=== PATIENT | male | born 1960 | race Caucasian/White ===

== ENCOUNTER 2022-02-25 07:45 | Outpatient (REF) | payer OTHER, SELFPAY | END 2022-02-25 07:46 | disposition home or self-care (01) | LOC: HO.US 07:45 | PROVIDERS: Visit Provider Internal Medicine | DX: Z13.89 Encounter for screening for other disorder (principal) ==

== ENCOUNTER 2022-03-31 08:07 | Outpatient (REF) | payer OTHER, SELFPAY ==
--- NOTE | ~2022-03-31 | US_ITS ---
EXAMINATION: US COMPLETE ABDOMEN WITH LIVER ELASTOGRAPHY CLINICAL INFORMATION: Liver fibrosis. History of hepatitis C. COMPARISON: Previous abdominal ultrasound December 2019 TECHNIQUE: Real-time imaging of the abdominal viscera. Noninvasive ultrasound liver fibrosis assessment is performed using Pranay ElastPQ point quantification shear wave elastography (2D-SWE) with a C5-2 MHz transducer. Multiple elastography samples are obtained. FINDINGS: PANCREAS: Normal. ABDOMINAL AORTA: The proximal, middle, and distal aortic segments are normal in caliber. INFERIOR VENA CAVA: Visualized portions are normal. LIVER: Liver echotexture is slightly increased. The liver demonstrates normal size and contour. No focal lesion or intrahepatic biliary duct dilatation. The right lobe measures 14.5 cm in length. The left lobe measures 7.1 cm in length. Portal flow is normal/hepatopedal Shear wave liver elastography median stiffness is 1.4 m/s (reference: normal median stiffness is 1.3 m/s or less). IQR/median stiffness to assess sampling precision is 0.07 (reference: good quality data set is IQR/median stiffness of 0.15 or less). GALLBLADDER: Normal. The gallbladder is physiologically distended without evidence of stones, sludge, polyps, wall thickening or pericholecystic fluid. COMMON BILE DUCT: Normal in caliber measuring 0.3 cm in diameter. RIGHT KIDNEY: There is a 1.2 x 0.8 x 0.7 cm cyst. No hydronephrosis. No renal calculi or focal parenchymal lesions. The kidney measures 10.7 cm in maximum dimension. LEFT KIDNEY: Normal. No hydronephrosis. No renal calculi or focal parenchymal lesions. The kidney measures 10.2 cm in maximum dimension. SPLEEN: Normal. The spleen measures 9.6 cm in maximum dimension. FREE FLUID: None. US/US abdomen comp w elastography IMPRESSION: 1. Impression: Slightly echogenic liver. No focal liver lesion or evidence of cirrhosis. Small right renal cyst. 2. Liver elastography: Adequate liver sampling. In the absence of other known clinical signs, rules out compensated advanced chronic liver disease. REFERENCE: Society of Radiologists in Ultrasound Liver Stiffness Thresholds (2020): LIVER STIFFNESS THRESHOLDS: *Liver Stiffness equal or less than 1.3 m/s: High probability of being normal. *Liver Stiffness less than 1.7 m/s: In the absence of other known clinical signs, rules out compensated advanced chronic liver disease. *Liver Stiffness 1.7-2.1 m/s: Suggestive of compensated advanced chronic liver disease but need further test for confirmation. *Liver Stiffness over 2.1 m/s: Rules in compensated advanced chronic liver disease. *Liver Stiffness over 2.4 m/s: Suggestive of clinically significant portal hypertension. QUALITY OF DATA SET: *IQR/Median value equal or less than 0.15 implies a quality data set. *IQR/Median value over 0.15 implies a poor quality data set. SIGNIFICANT CHANGE FROM PRIOR EXAM: Significant change if liver stiffness measurement is 10% or greater from prior exam. OTHER CONSIDERATIONS: The stage of liver fibrosis may be overestimated in the setting of acute hepatitis, liver inflammation, elevated liver function tests, hepatic vascular congestion, obstructive cholestasis, non-fasting state, and infiltrative diseases such as amyloidosis and lymphoma. In some patients with NAFLD, the liver stiffness thresholds for compensated advanced chronic liver disease may be lower. In causes other than viral hepatitis and NAFLD, liver stiffness thresholds are not well established.
== END 2022-03-31 08:08 | disposition home or self-care (01) ==
LOC: HO.US 08:07
PROVIDERS: Visit Provider Internal Medicine
DX: K74.00 Hepatic fibrosis, unspecified (principal); Z86.19 Personal history of other infectious and parasitic diseases
CPT/HCPCS: 76705; 76981

== ENCOUNTER 2022-04-07 16:30 | Outpatient (REF) | payer OTHER, SELFPAY ==
[2022-04-07 16:52] LABS: MANUAL DIFF FLAG NO
[2022-04-07 17:04] LABS: Basophils Absolute Auto 0.1 X10*3/uL (0.0-0.2); Basophils Percent Auto 0.8 % (0-2); Eosinophils Absolute Auto 0.3 X10*3/uL (0.0-0.4); Eosinophils Percent Auto 3.8 % (0-4); Hematocrit 37.1 % (42.0-52.0); Hemoglobin 12.6 g/dl (14.0-18.0); INTERNATIONAL NORM RATIO 0.9 (0.9-1.1); Imm Gran Abs Auto 0.02 X10*3/uL (0.00-0.03); Imm Gran Pct Auto 0.3 % (0.0-0.4); Lymphocytes Absolute Auto 2.6 X10*3/uL (1.2-4.9); Lymphocytes Percent Auto 37.3 % (20-40); Mean Corpuscular Hemoglobin 33.2 pg (27.0-33.0); Mean Corpuscular Volume 97.6 fL (80.0-98.0); Mean Platelet Volume 9.3 fL (9.4-12.4); Monocytes Absolute Auto 0.6 X10*3/uL (0.1-1.2); Monocytes Percent Auto 8.8 % (2-11); Neutrophils Absolute Auto 3.5 x10*3/uL (2.0-8.3); Platelet Count 290 X10*3/uL (160-400); Prothrombin Time 10.6 SEC (9.9-13.0); Red Cell Distribution Width 12.8 % (11.0-16.0); White Blood Count 7.1 X10*3/uL (4.8-10.8)
[2022-04-07 17:30] LABS: Alanine Aminotransferase 15 U/L (0-40); Albumin Level 4.2 g/dL (3.5-5.0); Alkaline Phosphatase 81 U/L (39-117); Aspartate Amino Transferase 28 U/L (5-37); Bilirubin Direct < 0.2 mg/dL (0.0-0.5); Bilirubin Total 0.2 mg/dL (0.0-1.0); Total Protein 6.5 g/dL (6.5-8.0)
[2022-04-09 12:26] LABS: Alpha Fetoprotein 1.6 ng/mL (<6.1)
[2022-04-12 06:11] LABS: FIB-ALT 16 U/L (9-46); FIB-Alpha-2-Macroglobulin 210 mg/dL (106-279); FIB-Apolipoprotein A1 125 mg/dL (94-176); FIB-GGT 14 U/L (3-70); FIB-Haptoglobin 128 mg/dL (43-212); FIB-Total Bilirubin 0.3 mg/dL (0.2-1.2); Liver Fibrosis Score 0.23; Liver Fibrosis Stage F0-F1; Nec Inflam Act Grade A0; Nec Inflam Act Score 0.05
== END 2022-04-07 16:31 | disposition home or self-care (01) ==
LOC: HO.LAB 16:30
PROVIDERS: Visit Provider Internal Medicine
DX: K74.00 Hepatic fibrosis, unspecified (principal); Z86.19 Personal history of other infectious and parasitic diseases
CPT/HCPCS: 36415; 80076; 81596; 82105; 85025; 85610; 87522

== ENCOUNTER 2022-04-09 16:17 | Outpatient (REF) | payer OTHER, SELFPAY ==
[2022-04-13 13:36] LABS: HCV Log PCR <1.18 NOT DETECTED Log IU/mL (NOT DETECTED); HepC Viral Load <15 NOT DETECTED IU/mL (NOT DETECTED)
== END 2022-04-09 16:18 | disposition home or self-care (01) ==
LOC: HO.LAB 16:17
PROVIDERS: PCP Internal Medicine; Visit Provider Internal Medicine
DX: K74.00 Hepatic fibrosis, unspecified (principal); Z86.19 Personal history of other infectious and parasitic diseases
CPT/HCPCS: 36415; 87522

== ENCOUNTER 2024-01-10 08:23 | Outpatient (REF) | payer MEDICARE, OTHER, SELFPAY ==
--- NOTE | ~2024-01-10 | US_ITS ---
EXAMINATION: US COMPLETE ABDOMEN WITH LIVER ELASTOGRAPHY CLINICAL INFORMATION: Hepatic fibrosis; history of hepatitis C. COMPARISON: None available. TECHNIQUE: Real-time imaging of the abdominal viscera. Noninvasive ultrasound liver fibrosis assessment is performed using Pranay ElastPQ point quantification shear wave elastography (2D-SWE) with a C5-2 MHz transducer. Multiple elastography samples are obtained. FINDINGS: PANCREAS: Limited. The visualized pancreatic head and proximal body are normal in appearance. The remainder of the pancreas is obscured from visualization by the overlying bowel gas. ABDOMINAL AORTA: The proximal, middle, and distal aortic segments are normal in caliber. There are atherosclerotic calcifications of the mid and distal segments. INFERIOR VENA CAVA: Visualized portions are normal. LIVER: Normal. The liver demonstrates normal size, contour and echogenicity. No focal lesion or intrahepatic biliary duct dilatation. The right lobe measures 14.2 cm in length. The left lobe measures 7.0 cm in length. Portal flow is towards the liver (hepatopetal). Shear wave liver elastography median stiffness is 1.69 m/s (reference: normal median stiffness is 1.3 m/s or less). IQR/median stiffness to assess sampling precision is 0.16 (reference: good quality data set is IQR/median stiffness of 0.15 or less). GALLBLADDER: Normal. The gallbladder is physiologically distended without evidence of stones, sludge, polyps, wall thickening or pericholecystic fluid. COMMON BILE DUCT: Normal in caliber measuring 0.4 cm in diameter. RIGHT KIDNEY: Normal. No hydronephrosis. No renal calculi or focal parenchymal lesions. The kidney measures 10.1 cm in maximum dimension. LEFT KIDNEY: Normal. No hydronephrosis. No renal calculi or focal parenchymal lesions. The kidney measures 9.9 cm in maximum dimension. SPLEEN: Normal. The spleen measures 6.9 cm in maximum dimension. FREE FLUID: None. US/US abdomen comp w elastography IMPRESSION: 1. Liver elastography: Although measurements appear to rule out compensated advanced chronic liver disease, there is statistical variability of the sampling which decreases accuracy. 2. Technically limited ultrasound examination, in particular of the pancreas. REFERENCE: Society of Radiologists in Ultrasound Liver Stiffness Thresholds (2019): LIVER STIFFNESS THRESHOLDS: *Liver Stiffness equal or less than 1.3 m/s: High probability of being normal. *Liver Stiffness less than 1.7 m/s: In the absence of other known clinical signs, rules out compensated advanced chronic liver disease. *Liver Stiffness 1.7-2.1 m/s: Suggestive of compensated advanced chronic liver disease but need further test for confirmation. *Liver Stiffness over 2.1 m/s: Rules in compensated advanced chronic liver disease. *Liver Stiffness over 2.4 m/s: Suggestive of clinically significant portal hypertension. QUALITY OF DATA SET: *IQR/Median value equal or less than 0.15 implies a quality data set. *IQR/Median value over 0.15 implies a poor quality data set. SIGNIFICANT CHANGE FROM PRIOR EXAM: Significant change if liver stiffness measurement is 10% or greater from prior exam. OTHER CONSIDERATIONS: The stage of liver fibrosis may be overestimated in the setting of acute hepatitis, liver inflammation, elevated liver function tests, hepatic vascular congestion, obstructive cholestasis, non-fasting state, and infiltrative diseases such as amyloidosis and lymphoma. In some patients with NAFLD, the liver stiffness thresholds for compensated advanced chronic liver disease may be lower. In causes other than viral hepatitis and NAFLD, liver stiffness thresholds are not well established.
[2024-01-10 08:19] LABS: MANUAL DIFF FLAG NO
[2024-01-10 09:02] LABS: INTERNATIONAL NORM RATIO 0.9 (0.9-1.1); Prothrombin Time 10.9 SEC (11.1-13.3)
[2024-01-10 09:32] LABS: Alanine Aminotransferase 16 U/L (0-40); Albumin Level 4.2 g/dL (3.5-5.0); Alkaline Phosphatase 58 U/L (39-117); Aspartate Amino Transferase 24 U/L (5-37); Bilirubin Direct 0.2 mg/dL (0.0-0.5); Bilirubin Total 0.5 mg/dL (0.0-1.0); Total Protein 6.7 g/dL (6.5-8.0)
[2024-01-10 09:39] LABS: Basophils Absolute Auto 0.1 X10*3/uL (0.0-0.2); Basophils Percent Auto 1.2 % (0-2); Eosinophils Absolute Auto 0.2 X10*3/uL (0.0-0.4); Eosinophils Percent Auto 3.1 % (0-4); Hematocrit 40.7 % (42.0-52.0); Hemoglobin 13.7 g/dl (14.0-18.0); Imm Gran Abs Auto 0.03 X10*3/uL (0.00-0.03); Imm Gran Pct Auto 0.5 % (0.0-0.4); Lymphocytes Absolute Auto 1.9 X10*3/uL (1.2-4.9); Mean Corpuscular HGB Conc 33.7 g/dl (31.0-36.0); Mean Corpuscular Hemoglobin 33.9 pg (27.0-33.0); Mean Corpuscular Volume 100.7 fL (80.0-98.0); Mean Platelet Volume 9.5 fL (9.4-12.4); Monocytes Absolute Auto 0.6 X10*3/uL (0.1-1.2); Monocytes Percent Auto 10.7 % (2-11); Neutrophils Percent Auto 51.5 % (45-73); Platelet Count 288 X10*3/uL (160-400); Red Blood Count 4.04 X10*6/uL (4.60-5.80); Red Cell Distribution Width 13.2 % (11.0-16.0); White Blood Count 5.8 X10*3/uL (4.8-10.8)
[2024-01-12 12:53] LABS: Alpha Fetoprotein 1.6 ng/mL (<6.1)
[2024-01-12 18:37] LABS: HCV Log PCR <1.18 NOT DETECTED Log IU/mL (NOT DETECTED); HepC Viral Load <15 NOT DETECTED IU/mL (NOT DETECTED)
[2024-01-19 15:03] LABS: FIB-ALT 11 U/L (9-46); FIB-Alpha-2-Macroglobulin 227 mg/dL (106-279); FIB-Apolipoprotein A1 138 mg/dL (94-176); FIB-GGT 16 U/L (3-70); FIB-Haptoglobin 137 mg/dL (43-212); FIB-Total Bilirubin 0.4 mg/dL (0.2-1.2); Liver Fibrosis Score 0.28; Liver Fibrosis Stage F1; Nec Inflam Act Grade A0; Nec Inflam Act Score 0.03
== END 2024-01-10 08:24 | disposition home or self-care (01) ==
LOC: HO.US 08:23
PROVIDERS: PCP Internal Medicine; Visit Provider Internal Medicine
DX: K74.00 Hepatic fibrosis, unspecified (principal); Z86.19 Personal history of other infectious and parasitic diseases
CPT/HCPCS: 36415; 76700; 76981; 80076; 81596; 82105; 85025; 85610; 87522

== ENCOUNTER 2025-02-01 10:26 | Day surgery (SDC) | payer MEDICARE, OTHER, SELFPAY ==
--- OUTSIDE RECORDS SUMMARY | 2025-01-21 17:39 | XMS_ITS ---
Author Organization [facility] Address [address] [place] [id number] Care Team Providers Care Foot Piece Assembler Name Role Phone Rolly Guerrero MD Primary Care Provider Bertin Schaffer Unavailable [phone] [facility], Meghan Unavailable Unavailable Allergies Allergen (clinical drug ingredient) Drug/Non Drug Allergy documented on EMR Reaction Allergy Type Onset Date Status morphine Morphine Sulfate severe headache Drug Allergy Active codeine codeine (uncoded) upset stomach Allergy Active REASON FOR VISIT Patient presents today for hepatitis Medications Medication SIG (Take, Route, Frequency, Duration) Notes Start Date End Date Status Gabapentin 600 MG 1 capsule Orally Onc e a day Active Atorvastatin Calcium Not-Taking Meloxicam 15 MG Oral for 30 Un known Flomax 0.4 MG 1 capsule Orally Onc e a day for 30 day(s) Active Citalopram Hydrobromide 20 MG 1 tablet Orally Once a day for 30 day(s) Active L-Lysine Active Lovastatin 10 MG 1 tablet with a meal Orally Once a day Active Vital Signs Temperature 97.5 degrees Fahrenheit 01/03/20 25 Blood pressure systolic 001 mm Hg 01/03/20 25 Blood pressure diastolic 01 mm Hg 025 Height 66 in 01/02/2025 Weight 186 lbs 01/02/2025 BMI 30.02 kg/m2 01/02/2025 Procedures Procedure Date Ordered Date Performed Result Body Sit e COLONOSCOPY 01/02/2025 N/A Encounters Encounter Location Date Provider Diagnosis [facility] [address] [place] [id number] 01/02/2025 Bertin Balbuena History of hepatitis C Z86.19 ; Liver fibrosis K74.00 ; History of adenomatous polyp of colon Z86.010 and Encounter for screening for malignant neoplasm of colon Z12.11 Assessments Encounter Date Diagnosis (ICD Code) Assessment Notes Treatment Notes Treatment Clinical Notes Section Notes 01/02/2025 History of hepatitis C (ICD-10 - Z86.19) Overall, Se appears well. He is not having any symptoms nor signs of progressive liver disease based on his examination and his clinical history. His laboratories and ultrasound from 1 year ago all appeared quite reassuring. He is not having any new or worrisome GI complaints either. I did recommend a follow-up colonoscopy for further screening given his history of a tubular adenoma and his last colonoscopy being just about 5 years ago in February of 2020. We did review the rationale for this in regard to colon cancer prevention. Full consent has been obtained for this, including risks of bleeding and perforation. The procedure will be done with monitored anesthesia care. In regard to the previous history of chronic hepatitis C I shall check the usual yearly laboratories and abdominal ultrasound as ordered below. Se was comfortable with this plan. Thank you again for allowing me to participate in Se's care. I shall continue to keep you advised of his progress. 01/02/2025 Liver fibrosis (ICD-10 - K74.00) Overall, Se appears well. He is not having any symptoms nor signs of progressive liver disease based on his examination and his clinical history. His laboratories and ultrasound from 1 year ago all appeared quite reassuring. He is not having any new or worrisome GI complaints either. I did recommend a follow-up colonoscopy for further screening given his history of a tubular adenoma and his last colonoscopy being just about 5 years ago in February of 2020. We did review the rationale for this in regard to colon cancer prevention. Full consent has been obtained for this, including risks of bleeding and perforation. The procedure will be done with monitored anesthesia care. In regard to the previous history of chronic hepatitis C I shall check the usual yearly laboratories and abdominal ultrasound as ordered below. Se was comfortable with this plan. Thank you again for allowing me to participate in Se's care. I shall continue to keep you advised of his progress. 01/02/2025 History of adenomatous polyp of colon (ICD-10 - Z86.010) Overall, Se appears well. He is not having any symptoms nor signs of progressive liver disease based on his examination and his clinical history. His laboratories and ultrasound from 1 year ago all appeared quite reassuring. He is not having any new or worrisome GI complaints either. I did recommend a follow-up colonoscopy for further screening given his history of a tubular adenoma and his last colonoscopy being just about 5 years ago in February of 2020. We did review the rationale for this in regard to colon cancer prevention. Full consent has been obtained for this, including risks of bleeding and perforation. The procedure will be done with monitored anesthesia care. In regard to the previous history of chronic hepatitis C I shall check the usual yearly laboratories and abdominal ultrasound as ordered below. Se was comfortable with this plan. Thank you again for allowing me to participate in Se's care. I shall continue to keep you advised of his progress. 01/02/2025 Encounter for screening for malignant neoplasm of colon (ICD-10 - Z12.11) Overall, Se appears well. He is not having any symptoms nor signs of progressive liver disease based on his examination and his clinical history. His laboratories and ultrasound from 1 year ago all appeared quite reassuring. He is not having any new or worrisome GI complaints either. I did recommend a follow-up colonoscopy for further screening given his history of a tubular adenoma and his last colonoscopy being just about 5 years ago in February of 2020. We did review the rationale for this in regard to colon cancer prevention. Full consent has been obtained for this, including risks of bleeding and perforation. The procedure will be done with monitored anesthesia care. In regard to the previous history of chronic hepatitis C I shall check the usual yearly laboratories and abdominal ultrasound as ordered below. Se was comfortable with this plan. Thank you again for allowing me to participate in Se's care. I shall continue to keep you advised of his progress. Plan Of Treatment Pending Test Test Name Order Date COLONOSCOPY 01/02/2025 LIVER PROFILE 01/02/2025 CBC w DIFF 01/02/2025 ALPHA-FETOPROTEIN,TUMOR MARKER HEPATITIS C VIRAL LOAD 01/02/2025 HCV LIVER FIBROSIS, FIBRO TEST Prothrombin Time INR 01/02/2025 US abdomen comp w elastography 5 Next Appt Details Follow Up: prn, Reason: Provider Name:Bertin Balbuena , 02/01/2025 02:40:00 PM, [address] [place] [address] , [place], [place], [phone], Progress Notes * JAYDEN BENITEZOB:1959 (64 yo M)Acc No.[id number]:01/02/2025 Progress Notes Patient:SE RILEY Provider:?Bertin Balbuena MD :1960???Age:64 Y???Sex:Male Sergio e:01/02/2025 Address:[address] [place], [place] [id number] Pcp:Rolly Guerrero MD Subjective: * Chief Complaints: * ???Patient presents today fo r hepatitis * HPI: ???incontinence:? .I saw Se in follow-up today in regard to his previous history of chronic hepatitis C, personal history of tubular adenomas of the colon, and need for colorectal cancer screening. I last saw Se in December 2023. At that time he had a normal abdominal ultrasound and specifically without any evidence of cirrhosis, liver mass, biliary disease, splenomegaly, ascites, nor portal vein thrombosis. His laboratories also appeared very good with a normal CBC with platelet count, normal PT with INR, normal liver profile, normal alpha-fetoprotein level, nondetectable hepatitis C viral load, and a liver fibrosis score of only F1. 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 He feels very well. He enjoys a good appetite and denies any significant heartburn or dysphagia. He denies abdominal pain, jaundice, nor unintentional weight loss. He denies any change in bowel habits, hematochezia, nor melena. .He denies any symptoms such as fatigue, pruritus, increasing abdominal girth, nor edema. He denies any known family history of colorectal cancer. * ROS:?General/Constitutional:?Change in appetite?denies.?Chills?denies.?Fatigue?denies.?Ophthalmologic:?Patient denies? Negative..?ENT:?Patient denies?Negative..?Respiratory:?Patient denies?No coughing/hemoptysis..?Cardiovascular:?Patient denies? No chest pain/orthopnea..?Gastrointestinal:?Comments?See HPI for details.?Genitourinary:?Patient denies? No dysuria/hematuria..?Musculoskeletal:?Patient denies? No specific arthralgias/myalgias..?Skin:?Patient denies?No rash/pruritus..?Neurologic:?Patient denies? No headaches/seizures..?Psychiatric:?Patient denies?Negative..? * Medical History:? * Surgical History:?Bilateral shoulder surgeries Bilateral carpal tunnel surgery Left knee surgery Right partial shoulder replacement 2019 Left shoulder replacement 2023 Right thumb surgery * Hospitalization/Major Diagno stic Procedure:?No Hospitalization History. * Family History:?Father: dece ased, diagnosed with Heart disease.?Mother: , diagnosed with Diabetes.? No GI malignancy nor IBD. No family history of liver cancer. * Social History:?Tobacco Use:?Tobacco Use/Smoking?Are you a: former smoker , How long has it been since you last smoked?: 1-5 years.?Drugs/Alcohol:?Alcohol Screen?Points: 0, Interpretation: Negative.?Miscellaneous:?Marital status: . 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 ???Nonsmoker since 2009; No alchohol use in greater than 20 yrs. * Medications:?TakingL-Lysine Lovastatin 10 MG Tablet 1 tablet with a meal Orally Once a day Flomax 0.4 MG Capsule 1 capsule Orally Once a day Citalopram Hydrobromide 20 MG Tablet 1 tablet Orally Once a day Gabapentin 600 MG Tablet 1 capsule Orally Once a day Taking L-Lysine Taking Lovastatin 10 MG Tablet 1 tablet with a meal Orally Once a day Taking Flomax 0.4 MG Capsule 1 capsule Orally Once a day Taking Citalopram Hydrobromide 20 MG Tablet 1 tablet Orally Once a day Taking Gabapentin 600 MG Tablet 1 capsule Orally Once a day Not-Taking/PRNAtorvastatin Calcium Not-Taking/PRN Atorvastatin Calcium UnknownMeloxicam 15 MG Tablet Oral Medication List reviewed and reconciled with the patientUnknown Meloxicam 15 MG Tablet Oral Medication List reviewed and reconciled with the patient * Allergies:?codeine: upset st omachMorphine Sulfate: severe headacheyes[Allergies Verified] Objective: * Vitals:?Wt:186lbs, Ht: 66 in , BMI:30.02Index, BP:001/01mm Hg, Temp:97.5, Wt-k.37. * Examination: ???General Examination: ?GENERAL APPEARANCE:?pleasant, well nourished, well developed, in no acute distress.?EYES:?sclera non-icteric.?ORAL CAVITY:?mucosa moist.?NECK/THYROID:?no cervical lymphadenopathy, neck supple.?SKIN:?nonjaundiced, no spider angiomata..?HEART:?S1, S2 normal.?LUNGS:?clear to auscultation bilaterally.?ABDOMEN:?normal bowel sounds, no guarding or rigidity, no hepatosplenomegaly, no masses palpable, soft, nondistended, NT.?EXTREMITIES:?no edema.?NEUROLOGIC:?alert and oriented.? Assessment: * Assessment: 1.?Liver fibrosis - K74.00 ( Primary)???2.?History of hepatitis C - Z86.19???3.?History of adenomatous polyp of colon - Z86.010???4.?Encounter for screening for malignant neoplasm of colon - Z12.11??? Overall, Se appears well . He is not having any symptoms nor signs of progressive liver disease based on his examination and his clinical history. His laboratories and ultrasound from 1 year ago all appeared quite reassuring. He is not having any new or worrisome GI complaints either. I did recommend a follow-up colonoscopy for further screening given his history of a tubular adenoma and his last colonoscopy being just about 5 years ago in February of 2020. We did review the rationale for this in regard to colon cancer prevention. Full consent has been obtained for this, including risks of bleeding and perforation. The procedure will be done with monitored anesthesia care. In regard to the previous history of chronic hepatitis C I shall check the usual yearly laboratories and abdominal ultrasound as ordered below. Se was comfortable with this plan. Thank you again for allowing me to participate in Se's care. I shall continue to keep you advised of his progress. Plan: * Treatment: * 2.?History of hepatitis C?LAB: LIVER PROFILE ?LAB: CBC w DIFF ?LAB: ALPHA-FETOPROTEIN,TUMOR MARKER ?LAB: HEPATITIS C VIRAL LOAD ?LAB: HCV LIVER FIBROSIS, FIBRO TEST ?LAB: Prothrombin Time INR ?Imaging: US abdomen comp w elastography* sched for 02/07/25 at 8:30 am [facility] 2nd floorfasting 8 hrs prior * 3.?History of adenomatous polyp of colon?Procedure: COLONOSCOPY* with MACsched for 02/01/25 at 2:40 pmmiralax 4.?Encounter for screening for malignant neoplasm of colon?Procedure: COLONOSCOPY* with MACsched for 02/01/25 at 2:40 pmmiralax * Procedure Codes:?04115 DIAGN OSTIC [id number] COLORECTAL CA SCREEN DOC [id number] TOBACCO [id number] BP SCR NOT PRFRM REC REASON [id number] RCMND FLW-UP 10 YRS DOCD * Preventive Medicine:? ??Counseling:?Care goal follow-up plan:?Above Normal BMI Follow-up?Dietary management education, guidance, and counseling,?BMI management provided?Yes.? ??Screenings:?Fall Risk Screening?Fall Risk Assessment:?One fall with injury in the past year,?Screening:?One fall with injury in the past year,?Assessment:?Not performed, no reason specified,?Plan of Care:?Documented,?Type of fall plan of care:?Balance, strength and gait training or instruction provided.? * Follow Up:?prn * * Sign off status: Completed true * Provider:?Bertin Balbuena MD Date:? 025 Generated for Iami mirian/Patrick/eTransmitting on:?01/21/2025 05:39 PM EDT History and Physical Notes * Examination Category Sub-Category Detail Notes Category Not es General Examination GENERAL APPEARANCE: pleasant , well nourished, well developed, in no acute distress EYES: sclera non-icteric NECK/THYROID: no cervical lymphade nopathy, neck supple HEART: S1, S2 normal LUNGS: clear to auscultatio n bilaterally ABDOMEN: normal bowel sounds, no guarding or rigidity, no hepatosplenomegaly, no masses palpable, soft, nondistended, NT NEUROLOGIC: alert and oriented SKIN: nonjaundiced, no spi jerome angiomata. EXTREMITIES: no edema ORAL CAVITY: mucosa moist
--- OUTSIDE RECORDS SUMMARY | 2025-01-21 17:39 | XMS_ITS ---
Author Organization [facility] Address [address] [place] [phone] Care Team Providers Care Automobile Brakes Bonder Name Role Phone Yolanda RALPH, Rolly Primary Care Provider Bertin Schaffer [phone] [facility], Meghan Unavailable Unavailable REASON FOR VISIT hepatitis Encounters Encounter Location Date Provider Diagnosis [facility] [address] [place] [phone] 12/19/2024 Bertin Balbuena Plan Of Treatment Next Appt Details Provider Name:Bertin Balbuena , 02/01/2025 02:40:00 PM, [address] [place] [address] , [place], [place], [phone], Progress Notes * JAYDEN BENITEZOB:1959 (64 yo M)Acc No.[id number]:12/19/2024 Progress Notes Patient:?SE BENITEZ Provider:?Bertin Balbuena MD :1960???Age:64 Y???Sex:Male Sergio e:12/19/2024 Address:[address] [place], [place] [id number] Pcp:Rolly Guerrero MD Subjective: * Chief Complaints: * ???1. Hepatitis. * Medical History:? Objective: * Vitals:? Assessment: Plan: * Treatment: * * The named appointment provid er may or may not be the originator of this progress note, and it is not deemed complete until electronically signed by the appointment provider. Sign off status: Pending * Provider:?Bertin Balbuena MD Date:? 025 Generated for Pradeep vela/Patrick/Taj on:?01/21/2025 05:38 PM EDT
--- OUTSIDE RECORDS SUMMARY | 2025-01-21 17:39 | XMS_ITS ---
Author Organization [facility] Address [address] [facility] [address] [place] [address] Care Team Providers Care Home Sales Consultant Name Role Phone Yolanda RALPH, Rolly Primary Care Provider Bertin Schaffer [phone] [facility] Unavailable Unavailable REASON FOR VISIT f/u from hepititis Encounters Encounter Location Date Provider Diagnosis [facility] [address] [facility] [address] [place] [address] 12/28/2023 Bertin Balbuena Plan Of Treatment Next Appt Details Provider Name:Bertin Balbuena , 02/01/2025 02:40:00 PM, [address] [place] [address] , [place], [place], [phone], Progress Notes * JAYDEN BENITEZOB:1959 (64 yo M)Acc No.[id number]:12/28/2023 Progress Notes Patient:?SE BENITEZ Provider:?Bertin Balbuena MD :1960???Age:63 Y???Sex:Male Sergio e:12/28/2023 Address:[address] [place], [place] [id number] Pcp:Rolly Guerrero MD Subjective: * Chief Complaints: * ???1. F/u from hepititis. * Medical History:? Objective: * Vitals:? Assessment: Plan: * Treatment: * * The named appointment provid er may or may not be the originator of this progress note, and it is not deemed complete until electronically signed by the appointment provider. Sign off status: Pending * Provider:?Bertin Balbuena MD Date:? 024 Generated for Pradeep vela/Patrick/Taj on:?01/21/2025 05:39 PM EDT
--- OUTSIDE RECORDS SUMMARY | 2025-01-21 17:40 | XMS_ITS | Patient Health Record ---
Author Organization [facility] Address [address] [place] [address] Care Team Providers Care Security Solutions Architect Name Role Phone Rolly Guerrero MD Primary Care Provider Bertin Schaffer Unavailable [phone] Meghan Walker CNP Unavailable Unavailable Allergies Allergen (clinical drug ingredient) Drug/Non Drug Allergy documented on EMR Reaction Allergy Type Onset Date Status morphine Morphine Sulfate severe headache Drug Allergy Active codeine codeine (uncoded) upset stomach Allergy Active Reason For Referral No Information Medications Medication SIG (Take, Route, Frequency, Duration) Notes Start Date End Date Status Gabapentin 600 MG 1 capsule Orally Onc e a day Active Atorvastatin Calcium Not-Taking Meloxicam 15 MG Oral for 30 Un known L-Lysine Active Lovastatin 10 MG 1 tablet with a meal Orally Once a day Active Flomax 0.4 MG 1 capsule Orally Onc e a day for 30 day(s) Active Citalopram Hydrobromide 20 MG 1 tablet Orally Once a day for 30 day(s) Active Immunizations Vaccine Route Administration Date Status Comme nts Influenza Unknown 06/17/2022 Administered Influenza Unknown 07/05/2023 Administered Influenza Unknown 07/03/2024 Administered Problems Problem Type SNOMED Code ICD Code Onset Dates Problem Status W/U Status Risk Notes Problem 218571091 Encounter for screening for malignant neoplasm of colon (Z12.11) Active confirmed Problem History of adenomatous polyp of colon (257236832) History of adenomatous polyp of colon (Z86.010) Active confirmed Problem 652462262 Chronic hepatitis C without hepatic coma (B18.2) Active confirmed Problem 960608727 Abdominal pain, right upper quadrant (R10.11) Active confirmed Problem 83339468478414 History of hepatitis C (Z86.19) Active confirmed Problem 91198210 Liver fibrosis (K74.0) Active confirmed Problem 38348994 Liver fibrosis (K74.00) Active confirmed Vital Signs Temperature 97.5 degrees Fahrenheit 01/02/2025 Blood pressure diastolic 01 mm Hg 01/02/2025 Height 66 in 01/02/2025 Blood pressure systolic 001 mm Hg 01/02/2025 Weight 186 lbs 01/02/2025 BMI 30.02 kg/m2 01/02/2025 Procedures Procedure Date Ordered Date Performed Result Body Sit e COLONOSCOPY 01/02/2025 N/A Encounters Encounter Location Date Provider Diagnosis [facility] [address] [place] [address] 01/02/2025 Bertin Balbuena History of hepatitis C [...] Order Date COLONOSCOPY 01/02/2025 LIVER PROFILE 01/02/2025 LIVER PROFILE 12/21/2023 LIVER PROFILE 12/24/2021 CBC w DIFF 01/02/2025 CBC w DIFF 12/21/2023 CBC w DIFF 12/24/2021 PROTHROMBIN TIME (PT, INR) 12/24/2021 ALPHA-FETOPROTEIN,TUMOR MARKER 4 ALPHA-FETOPROTEIN,TUMOR MARKER 2 ALPHA-FETOPROTEIN,TUMOR MARKER 5 ALPHA-FETOPROTEIN,TUMOR MARKER 4 HEPATITIS C VIRAL LOAD 12/21/2023 HEPATITIS C VIRAL LOAD 12/24/2021 HEPATITIS C VIRAL LOAD 01/02/2025 HCV LIVER FIBROSIS, FIBRO TEST 5 US ABDOMEN COMP WITH ELASTOGRAPHY 2021 Prothrombin Time INR 01/02/2025 Prothrombin Time INR 12/21/2023 Liver Fibrosis Pnl 12/24/2021 Liver Fibrosis Pnl 12/21/2023 US abdomen comp w elastography 5 US abdomen comp w elastography 4 Future Test Test Name Order Date COLONOSCOPY 10/06/2011 COLONOSCOPY 12/11/2019 Next Appt Details Provider Name:Bertin Balbuena , 02/01/2025 02:40:00 PM, [address] [place] [address] , [place], [place], [phone], Insurance Providers Payer Name Payer Address Payer Phone Subscriber Number Group Number Insured Name Patient Relationship to Insured Coverage Start Date Coverage End Date MEDICARE OF [place] [address] [facility] [place] [id number] [phone] [id number] SE ZAMORA Self - patient is the insured [facility] [address] [place] [address] [id number] SE ZAMORA Self - patient is the insured Medical (General) History Medical History History ICD Code Cardiac ablation at [facility] Negative colonoscopy in September 2011 an d in November 2009 Previous chronic Hepatitis C treated successfully from 1997 through 1998, with negative followup Hep C RNA levels. 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 Neg. hepatitis C viral load in 2021 Hyperlipidemia Denies ME,DM,CVA,Lung disease,renal dise ase BPH Arthritis in hands and feet and bilatera l shoulders Restless leg syndrome Sigmoid diverticulitis on CT in 09/2017- -treated with outpatient antibiotics Colonoscopy 02/2020 with 1 small tubular adenoma Sleep apnea-uses CPAP COPD Surgical History Surgery Date(Month/Year) Right thumb surgery Left shoulder replacement 2023 Right partial shoulder replacement 2019 Left knee surgery Bilateral carpal tunnel surgery Bilateral shoulder surgeries
--- OUTSIDE RECORDS SUMMARY | 2025-01-21 17:40 | XMS_ITS | Data Portability ---
Author Organization [place] [facility] [id number] Address [address] [place] [address] Care Team Providers Care Certified Executive Chef Name Role Phone BRODY CABRERA Primary Care Provider Assessment No assessment recorded. Plan of Treatment Reminders Order Date Submit Date Provider Last Modified By Organization Details Last Modified Time Details Appointments None recorded. Lab None recorded. Referral None recorded. Procedures None recorded. Surgeries None recorded. Imaging None recorded. Medication Orders clotrimazol e 10 mg clive 2023 024 [email or web address] [id number], [address] [place], [address], 4 16:50:23 Patient TargetsNo targets recorded. Patient InstructionsNo instructions recorded. Reason for Referral None Reported. 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 Procedures Surgical History Date Name Laterality Status Provider Name and Address Organization Details Recorded Time Shoulder joint surgery completed Jose Alfredo [place]sean [place] - [facility] 05/06/2024 16:36:36 procedure on knee completed Jose Alfredo Curto [place] - [facility] 05/06/2024 16:36:52 Imaging Results None recorded. Procedure Notes None recorded. Medical Equipment None Reported. Allergies Allergen ID Allergen Name Allergen Category Reaction Reaction Severity Criticality Documentation Date Start Date Code Code System Note Provider Name and Address Organization Details Recorded Time 560573 codeine medicatio n vomiting Not available Not available 05/06/2024 2670 RxNorm Jose Alfredo Curto null, [place] - [facility] 4 16:31:57 561082 morphine medicatio n headache Not available Not available 05/06/2024 7052 RxNorm Jose Alfredo Curto null, [place] - [facility] 4 16:32:10 Medications Name Sig Start Date Stop Date Status Note LastModified by Organization Details LastModified Time celecoxib 200 mg capsule 05/06 completed Not Available Not Available Not Available cyclobenzap rine 10 mg tablet TAKE 1 TABLET BY MOUTH THREE TIMES DAILY NEEDED FOR spasm 05/06 completed Not Available Not Available Not Available amoxicillin 500 mg capsule TAKE 1 CAPSULE BY MOUTH THREE TIMES DAILY UNTIL FINISHED 05/06 completed Not Available Not Available Not Available Flomax 0.4 mg capsule Take 1 capsule every day by oral route. active Not Available Not Available No t Available clotrimazol e 10 mg clive Take 1 tablet 5 times a day by oral route for 14 days. 2023 active Not Available Not Available Not Avai lable gabapentin 600 mg tablet Take 1 tablet every day by oral route. active Not Available Not Available No t Available atorvastati n 10 mg tablet 05/06 completed Not Available Not Available Not Available azithromyci n 250 mg tablet TAKE 2 TABLETS BY MOUTH TODAY THEN TAKE 1 TABLET DAILY FOR THE NEXT 4 DAYS 05/06 completed Not Available Not Available Not Available benzonatate 200 mg capsule TAKE 1 CAPSULE BY MOUTH THREE TIMES DAILY FOR 7 DAYS. swallow whole 05/06 completed Not Available Not Available Not Available citalopram 10 mg tablet Take 1 tablet every day by oral route. active Not Available Not Available No t Available prednisone 20 mg tablet TAKE 1 TABLET BY MOUTH TWICE DAILY FOR 5 DAYS 05/06 completed Not Available Not Available Not Available lovastatin 10 mg tablet Take 1 tablet every day by oral route. active Not Available Not Available No t Available citalopram 20 mg tablet 05/06 completed Not Available Not Available Not Available econazole nitrate 1 % topical cream Apply twice daily to feet for 3 weeks until cleared, then once weekly for maintenan ce. 05/06 completed Not Available Not Available Not Available gabapentin 300 mg capsule TAKE 1 CAPSULE BY MOUTH TWICE DAILY 05/06 completed Not Available Not Available Not Available methylpredn isolone 4 mg tablets in a dose pack TAKE BY MOUTH directed ON package 05/06 completed Not Available Not Available Not Available albuterol sulfate HFA 90 mcg/actuati on aerosol inhaler inhale 2 PUFFS BY MOUTH every 6 hours NEEDED FOR WHEEZING 05/06 completed Not Available Not Available Not Available Trelegy Ellipta 200 mcg-62.5 mcg-25 mcg powder for inhalation inhale 1 PUFF BY MOUTH ONCE DAILY AT THE same TIME every DAY 05/06 completed Not Available Not Available Not Available Vitals Date Recorded Oxygen saturation Oxygen saturation in Arterial blood by Pulse oximetry Pain severity - 0-10 verbal numeric rating [Score] - Reported Heart rate Respiratory rate Body temperature Body height Body mass index (BMI) Body weight Systolic blood pressure Diastolic blood pressure Provider Name and Address Organization Details Last Updated DateTime 4 96 % 96 % 7 71 /min 16 /min 98.5 [degF] 167.64 cm 27.8 kg/m2 41138.8 9 g 118 mm[Hg] 68 mm[Hg] Jose Alfredo Valenzuela [facility] 16:30:41 Social History Question Answer Notes LastModified by Organizat ion Details LastModified Time Tobacco Smoking Status Former Smoker ROSANNE Quinones [facility] 05/06/2024 16:36:19 What Is Your Level Of Alcohol Consumption? None Information not available 05/06/2024 When Did You Quit Smoking? 16+yearssin marysolcijanet etmady Information not available 05/06/2024 Have You Had A Flu Shot This Season? Yes Information not available 05/06/2024 Do You Use Any Illicit Or Recreational Drugs? Yes [place] Information not available 05/06/2024 Have You Recently Traveled Abroad? No Information not available 05/06/2024 Do You Or Have You Ever Used Any Other Forms Of Tobacco Or Nicotine? No Information not available 05/06/2024 Sex: Unknown Functional Status None recorded. Mental Status None recorded. Family History Relationship Description Onset Age of this Age Resolved Age Notes LastModified by Organization Details LastModified Time Father Cardiac arrest Not available 2023 16:35:32 Mother Congestive heart failure Not available 2023 16:35:40 Brother Malignant tumor of lung Not available 2023 16:35:48 Medical History No medical history recorded. Past Encounters Encounter ID Performer Location Encounter Start Date Encounter Closed Date Diagnosis/Indication Diagnosis SNOMED-CT Code Diagnosis ICD10 Code Diagnosis Note [id number] [address] [place] [address] 04/20/2016 16:03:18 04/20/2016 16:43:[id number] [address] 09/05/2020 18:41:48 09/05/2020 19:40:03 [id number] [address] [address] 09/27/2015 09:54:13 09/27/2015 10:55:57 [id number] [place] [address] [address] 05/06/2024 16:17:46 05/06/2024 16:40:02 Candidiasis of mouth 79764946 B37.0 See pcp in 3-4 days. Go to ER if anything worsens. Otc tylenol as needed for pain. Symptomati c treatment. All of patients questions have been answered. Patient has understand ing and agreement of all of this. Health Concerns Section Related Observation LastModified by Organization Detai ls LastModified Time None Recorded Concern Status LastModified by Organization Details LastModified Time None Recorded Advance Directives Directive None Recorded Payers Encounter Date Sequence Insurance Name Policy Number Policy Sy Covered Member ID Sy Member ID Guarantor Name 09/27/2015 1 [facility] [id number] [place] [id number] Devonte Sargentace 04/20/2016 1 [facility] [id number] [facility] [id number] Devonte [place] 09/05/2020 1 [facility] [id number] [facility] [id number] Devonte [place] 05/06/2024 1 [place] [employer] Devonte Sam [place] [id number] [facility] Notes Date Note Type Note Provider Name and Address Organization Details Recorded Time 05/06/2024 text/html Pt c/o redness swelling and burning pain of tongue x few weeks ?thrushNO FEVERSNO DIABETESHAS AN INHALED STEROID FOR COPD. BRUSHES AND RINSES MOUTH DIRECTED FOR INHALED STEROID Lenny Matthews DO [facility] [place], [address], [place] - [facility] 05/06/2024 16:53:06
--- NOTE | 2025-01-31 08:51 | HO.ANESPROP2 ---
Documented by User: Michelle Mendez NP 01/31/25 08:52 HPI - Anesthesia Eval Consult details Narrative: 64yo M for Colonoscopy PMFSH Active Problems Active Problems: All Active Problems Viral upper respiratory infection (Acute) Past Medical History Medical History [place] (obstructive sleep apnea) COPD (chronic obstructive pulmonary disease) Diverticulitis RLS (restless legs syndrome) Arthritis BPH (benign prostatic hyperplasia) Hyperlipidemia Hepatitis C Surgical History Surgical History History of cardiac radiofrequency ablation Hx of hand surgery Hx of shoulder surgery History of total replacement of left shoulder joint Hx of knee surgery History of carpal tunnel release of both wrists History of liver biopsy H/O colonoscopy Social History Social History Household Members: Spouse Patient Tobacco Use Status: Former Tobacco user Tobacco use type: Cigarette Substance Use Type Other:: 01/31/2025 Substance Use Frequency: Daily Advance Directives: No Advance Directives Information Provided: Yes Meds Allergies Allergy/AdvReac Type Severity Reaction Status Date / Time codeine AdvReac Intermediate Gastrointestinal Verified 01/30/25 13:27 Upset morphine AdvReac Intermediate Gastrointestinal Verified 01/30/25 13:27 Upset Home Medications ?Medication ?Instructions ?Recorded ?Confirmed ?Last Taken ?Type citalopram 20 mg tablet 20 mg PO DAILY 02/17/23 02/01/25 Unknown History gabapentin 300 mg capsule 300 mg PO DAILY 02/17/23 02/01/25 Unknown History tamsulosin 0.4 mg capsule 0.4 mg PO DAILY 02/17/23 02/01/25 Unknown History albuterol sulfate 90 mcg/actuation 2 puff inhalation Q4-6H PRN 01/30/25 02/01/25 Unknown History aerosol inhaler Shortness Of Breath Or Wheezing fluticasone fur. 200 mcg-umeclid 1 inh inhalation DAILY 01/30/25 02/01/25 02/01/25 History 62.5 mcg-vilant 25 mcg inhalat.powder (Trelegy Ellipta) lovastatin 10 mg tablet 10 mg PO DAILY 01/30/25 02/01/25 Unknown History Exam Height,Weight and Vital Signs: Height 5 ft 6 in Weight 84.368 kg Assessment and Plan Assessment Anesthesia Assessment: Chart Reviewed Documented by User: Billie Rojas MD 02/01/25 11:52 PMFSH Past Medical History Medical History [place] (obstructive sleep apnea) COPD (chronic obstructive pulmonary disease) Diverticulitis RLS (restless legs syndrome) Arthritis BPH (benign prostatic hyperplasia) Hyperlipidemia Hepatitis C Family History Family history of problems with anesthesia: No Surgical History Surgical History History of cardiac radiofrequency ablation Hx of hand surgery Hx of shoulder surgery History of total replacement of left shoulder joint Hx of knee surgery History of carpal tunnel release of both wrists History of liver biopsy H/O colonoscopy History of Problems with Anesthesia: No Social History Social History Household Members: Spouse Patient Tobacco Use Status: Former Tobacco user Tobacco use type: Cigarette Substance Use Type Other:: 01/31/2025 Substance Use Frequency: Daily Advance Directives: No Advance Directives Information Provided: Yes Meds Allergies Allergy/AdvReac Type Severity Reaction Status Date / Time codeine AdvReac Intermediate Gastrointestinal Verified 01/30/25 13:27 Upset morphine AdvReac Intermediate Gastrointestinal Verified 01/30/25 13:27 Upset Home Medications ?Medication ?Instructions ?Recorded ?Confirmed ?Last Taken ?Type citalopram 20 mg tablet 20 mg PO DAILY 02/17/23 02/01/25 Unknown History gabapentin 300 mg capsule 300 mg PO DAILY 02/17/23 02/01/25 Unknown History tamsulosin 0.4 mg capsule 0.4 mg PO DAILY 02/17/23 02/01/25 Unknown History albuterol sulfate 90 mcg/actuation 2 puff inhalation Q4-6H PRN 01/30/25 02/01/25 Unknown History aerosol inhaler Shortness Of Breath Or Wheezing fluticasone fur. 200 mcg-umeclid 1 inh inhalation DAILY 01/30/25 02/01/25 02/01/25 History 62.5 mcg-vilant 25 mcg inhalat.powder (Trelegy Ellipta) lovastatin 10 mg tablet 10 mg PO DAILY 01/30/25 02/01/25 Unknown History Exam Airway Mallampati Class: II TM Dist: >3cm Neck ROM: Full Denture: Lower Heart: rrr Lungs: cta Assessment and Plan Assessment Anesthesia Assessment: Anesthesia Plan Discussed Final Anesthetic Review Family History of Problems with Anesthesia: No History of Problems with Anesthesia: No NPO: Yes ASA Class: III (hepatitis ) Final Preanesthetic Review: No Changes in Pt Med Stat, Meds/Allgs Chart Reviewed, Consent Obtained/Reviewed and Anes Risks/Benef Reviewed Patient Risk: Intermediate Procedure Risk: Low Anesthetic Plan Anesthetic Plan: MAC: Disposition: Standard PACU
[2025-02-01 11:17] VITALS: BP 133/78; PULSE 70; RESP 18; TEMP 36.6; O2SAT 98; BMI 28.5
[2025-02-01] MEDS: Lactated Ringers 1,000 ML 100 ML IVCONT (11:55)
[2025-02-01 13:20] VITALS: BP 128/71; PULSE 69; RESP 16; O2SAT 98
--- NOTE | 2025-02-01 13:23 | P.BOP_ITS ---
Brief Operative Note Date of Service: 02/01/25 Pre-op diagnosis: Screening Post-op diagnosis: other (Diverticulosis) Procedure: Colonoscopy to the cecum Surgeon: Bertin Balbuena MD Anesthesia: MAC Was an Cad Design Engineer used for this Procedure?: No Estimated blood loss (mL): 0 Pathology: none sent Condition: stable Disposition: PACU
[2025-02-01 13:35] VITALS: BP 151/78; PULSE 66; RESP 16; TEMP 36.6; O2SAT 98
--- NOTE | 2025-02-01 13:43 | OP_ITS ---
DATE OF SERVICE: 02/01/2025 SURGEON: Bertin Balbuena MD INDICATIONS: The patient presents for evaluation of colorectal cancer screening and personal history of tubular adenoma of the colon. Full consent has been obtained from him for this, including risks of bleeding and perforation. PREOPERATIVE DIAGNOSIS: POSTOPERATIVE DIAGNOSIS: PROCEDURE PERFORMED: Colonoscopy to the cecum. ESTIMATED BLOOD LOSS: COMPLICATIONS: ANESTHESIA: Monitored anesthesia care. ASSISTANTS: SPECIMENS: PREOPERATIVE DIAGNOSES: Colorectal cancer screening and personal history of tubular adenoma. POSTOPERATIVE DIAGNOSES: Colorectal cancer screening and personal history of tubular adenoma, diverticulosis, internal hemorrhoids. DESCRIPTION OF PROCEDURE: The patient was placed in left lateral decubitus position. The digital rectal exam revealed no abnormalities. The Olympus video pediatric colonoscope was entered into the rectum and advanced easily to the cecum. Once in the cecum, I did identify normal-appearing cecal pouch with appendiceal orifice and a normal-appearing ileocecal valve. The entire cecum was well visualized and appeared normal. The scope was then slowly withdrawn assessing all mucosal surfaces carefully. Preparation was excellent. I did not visualize any sign of polyps, colitis, nor angiodysplasia. There was a mild amount of sigmoid diverticulosis. In the rectum, scope was retroflexed visualizing internal hemorrhoids, but no other pathology. The rectal mucosa appeared normal. Scope was straightened and withdrawn from the patient. He tolerated the procedure well and was returned to the recovery area in stable condition. IMPRESSION: 1. Diverticulosis. 2. Internal hemorrhoids. PLAN: I would recommend a repeat colonoscopy in 5 years for further screening. He will be seen in 1 year for followup as well in regard to his previous chronic hepatitis C. He was reminded to keep his appointment for his abdominal ultrasound and laboratories for next week. This has been discussed with his . MD JAVIER Rodriguez/JATINL / [id number]
== END 2025-02-01 14:09 | disposition home or self-care (01) ==
PROVIDERS: PCP Internal Medicine; Visit Provider Internal Medicine
PROC: 0DJD8ZZ Inspection of Lower Intestinal Tract, Via Natural or Artificial Opening Endoscopic (ICD-10-PCS; CPT 45378; principal; 2025-02-01 12:10)
DX: Z12.11 Encounter for screening for malignant neoplasm of colon (principal); Z86.0101 Personal history of adenomatous and serrated colon polyps; K57.30 Diverticulosis of large intestine without perforation or abscess without bleeding; K64.8 Other hemorrhoids; K74.01 Hepatic fibrosis, early fibrosis; Z86.19 Personal history of other infectious and parasitic diseases; E78.5 Hyperlipidemia, unspecified; M15.9 Polyosteoarthritis, unspecified; Z87.19 Personal history of other diseases of the digestive system; J44.9 Chronic obstructive pulmonary disease, unspecified; G47.33 Obstructive sleep apnea (adult) (pediatric); Z99.89 Dependence on other enabling machines and devices; Z98.890 Other specified postprocedural states; Z87.891 Personal history of nicotine dependence
CPT/HCPCS: G0105

== ENCOUNTER 2025-02-07 06:50 | Outpatient (REF) | payer MEDICARE, OTHER, SELFPAY ==
--- NOTE | ~2025-02-07 | US_ITS ---
EXAMINATION: US ABDOMEN COMPLETE WITH LIVER ELASTOGRAPHY HISTORY: HISTORY OF HEPATITIS C, LIVER FIBROSIS TECHNIQUE: Real-time grayscale ultrasound imaging of the abdomen was performed and images were reviewed. COMPARISON: Comparison is made with the prior examination dated 01/10/2024. FINDINGS: Liver: The right lobe of the liver measures 17.0 cm in size. The left lobe of the liver measures 7.5 cm in size. The liver demonstrates increased echotexture, consistent with steatosis. No focal mass or intrahepatic biliary ductal dilatation is identified. There is normal hepatopedal flow in the portal vein. Ultrasound elastography of the liver was performed with 10 separate measurements of the liver parenchyma with the patient in the supine position. Measurements were obtained approximately 2 cm below Dragan's capsule and perpendicular to the capsule. Images are of satisfactory quality. The liver Ultrasound Derived Fat Fraction (UDFF) is 28.8%, which is elevated (normal <=5%). The median shear wave velocity is 0.85 m/s (previously 1.69 m/s, although this was performed on a different machine making comparison difficult). The interquartile range/median (IQR/median) is 0.48. Gallbladder and biliary tree: The gallbladder is unremarkable, without evidence of calculi, wall thickening, or pericholecystic fluid. There is no sonographic Lew sign. The common bile duct is normal in caliber measuring 3 mm. Kidneys: The right kidney measures 10.3 cm in length. The left kidney measures 10.0 cm in length. The kidneys are unremarkable, without evidence of masses, hydronephrosis, or calculi. Pancreas: The pancreatic head, neck, and body are unremarkable. The pancreatic tail is obscured by bowel gas. Spleen: The spleen is normal in size and contour, measuring 8.1 cm in length. Abdominal aorta and inferior vena cava: The visualized portions of the abdominal aorta and inferior vena cava are normal in caliber. There is no free fluid in the abdomen. US/US abdomen comp w elastography IMPRESSION: Hepatic steatosis with a UDFF of 28.8%. The median shear wave velocity in the liver is 0.85 m/s, corresponding to a median liver stiffness of 2.2 kPa. The IQR/median value is 0.48. This is indicative of a poor quality data set, and the estimated liver stiffness may be unreliable. Findings are indicative of a normal elastography value with a low likelihood of severe fibrosis or cirrhosis. REFERENCE: Society of Radiologists in Ultrasound Liver Stiffness Thresholds (2020): LIVER STIFFNESS THRESHOLDS: *Shear wave velocity less than 1.3 m/s (Liver Stiffness equal or less than 5 kPa): High probability of being normal. *Shear wave velocity less than 1.7 m/s (Liver Stiffness less than 9 kPa): In the absence of other known clinical signs, rules out compensated advanced chronic liver disease. *Shear wave velocity between 1.7-2.1 m/s (Liver Stiffness 9-13 kPa): Suggestive of compensated advanced chronic liver disease but need further test for confirmation. *Shear wave velocity between 2.1-2.4 m/s (Liver Stiffness 13-17 kPa): Rules in compensated advanced chronic liver disease. *Shear wave velocity greater than 2.4 m/s (Liver Stiffness over 17 kPa): Suggestive of clinically significant portal hypertension. QUALITY OF DATA SET: *IQR/Median value equal or less than 0.15 implies a quality data set. *IQR/Median value over 0.15 implies a poor quality data set. SIGNIFICANT CHANGE FROM PRIOR EXAM: Significant change if liver stiffness measurement is 10% or greater from prior exam. OTHER CONSIDERATIONS: The stage of liver fibrosis may be overestimated in the setting of acute hepatitis, liver inflammation, elevated liver function tests, hepatic vascular congestion, obstructive cholestasis, non-fasting state, and infiltrative diseases such as amyloidosis and lymphoma. In some patients with NAFLD, the liver stiffness thresholds for compensated advanced chronic liver disease may be lower. In causes other than viral hepatitis and NAFLD, liver stiffness thresholds are not well established. Electronically signed by: Bertin Loera MD 02/08/2025 08:23 AM EDT
--- OUTSIDE RECORDS SUMMARY | 2025-02-07 06:52 | XMS_ITS | Continuity of Care Document ---
Author Organization [facility], SHILPA Wilson 2nd floor Address [address] [place] [address] Care Team Providers Care Digital Content Specialist Name Role Phone PRITESHArely BRODY Primary Care Provider Assessment No assessment recorded. Plan of Treatment Reminders Order Date Submit Date Provider Last Modified By Organization Details Last Modified Time Details Appointments None record ed. Lab None record ed. Referral None record ed. Procedures None record ed. Surgeries None record ed. Imaging None record ed. Medication Orders None record ed. Patient TargetsNo targets recorded. Patient InstructionsNo instructions recorded. Reason for Referral None Reported. 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 Procedures Surgical History Date Name Laterality Status Provider Name and Address Organization Details Recorded Time 4 Cast_Thumb Spica_11+ completed DOMENICA WINN [facility] 05/30/2024 13:22:20 4 Cast Removal completed DOMENICA WINN [facility] 05/30/2024 13:21:27 4 Sports Shoulder completed Kristie Tejada PA-C [address], [place], [address], [facility] 03/26/2024 14:43:31 Imaging Results None recorded. Procedure Notes None recorded. Medical Equipment None Reported. Allergies Allergen ID Allergen Name Allergen Category Reaction Reaction Severity Criticality Documentation Date Start Date Code Code System Note Provider Name and Address Organization Details Recorded Time 54419 morphine sulfate medicatio n Not available Not available Not available 12/19/20232020 99083 RxNorm Not Available [facility] 12:08:38 28985 codeine medicatio n Not available Not available Not available 12/19/20232022 2670 RxNorm Not Available [facility] 12:08:38 Medications Name Sig Start Date Stop Date Status Note LastModified by Organization Details LastModified Time celecoxib 200 mg capsule active Not Available Not Available Not Available cyclobenzap rine 10 mg tablet TAKE 1 TABLET BY MOUTH THREE TIMES DAILY NEEDED FOR spasm active Not Available Not Available No t Available amoxicillin 500 mg capsule TAKE 1 CAPSULE BY MOUTH THREE TIMES DAILY UNTIL FINISHED active Not Available Not Available No t Available clotrimazol e 10 mg clive ALLOW 1 CLIVE TO DISSOLVE IN MOUTH 5 TIMES DAILY FOR 10 DAYS active Not Available Not Available No t Available gabapentin 600 mg tablet TAKE 1 TABLET BY MOUTH DAILY AT BEDTIME active Not Available Not Available No t Available atorvastati n 10 mg tablet TAKE 1 TABLET DAILY active Not Available Not Available No t Available azithromyci n 250 mg tablet TAKE 2 TABLETS BY MOUTH TODAY THEN TAKE 1 TABLET DAILY FOR THE NEXT 4 DAYS active Not Available Not Available No t Available benzonatate 200 mg capsule TAKE 1 CAPSULE BY MOUTH THREE TIMES DAILY FOR 7 DAYS. swallow whole active Not Available Not Available No t Available prednisone 20 mg tablet TAKE 2 TABLETS BY MOUTH DAILY FOR 5 DAYS THEN TAKE 1 tablet DAILY FOR 5 DAYS WITH food 12/12 completed Not Available Not Available Not Available citalopram 20 mg tablet TAKE 1 TABLET DAILY active Not Available Not Available No t Available tamsulosin 0.4 mg capsule TAKE 1 CAPSULE DAILY active Not Available Not Available No t Available econazole nitrate 1 % topical cream Apply twice daily to feet for 3 weeks until cleared, then once weekly for maintenan ce. active Not Available Not Available No t Available pseudoephed rine-guaife nesin ER 80-700 mg tablet,exte nded release 1-2 Q 4-[address] WHILE ON THIS MEDICATIO N 10/08 completed Statu s: 'Disc ontin ued'; Not Available Not Available Not Available gabapentin 300 mg capsule TAKE 1 CAPSULE BY MOUTH TWICE DAILY active Not Available Not Available No t Available mupirocin 2 % topical ointment active Not Available Not Available Not Available methylpredn isolone 4 mg tablets in a dose pack TAKE BY MOUTH directed ON package active Not Available Not Available No t Available albuterol sulfate HFA 90 mcg/actuati on aerosol inhaler inhale 2 PUFFS BY MOUTH every 6 hours NEEDED FOR WHEEZING active Not Available Not Available No t Available amoxicillin 875 mg-potassiu m clavulanate 125 mg tablet TAKE 1 TABLET BY MOUTH every 12 hours FOR 7 DAYS 11/12 completed Not Available Not Available Not Available oxycodone 5 mg tablet Take 1 tablet every 4-6 hours by oral route as needed for 7 days, for postopera tive pain. active Not Available Not Available No t Available oxycodone HCl-oxycodo ne-ASA [address] WHILE TAKING THIS MEDICATIO N 08/31 completed Statu s: 'Disc ontin ued'; Not Available Not Available Not Available Trelegy Ellipta 200 mcg-62.5 mcg-25 mcg powder for inhalation inhale 1 PUFF BY MOUTH ONCE DAILY AT THE same TIME every DAY active Not Available Not Available No t Available Vitals Date Recorded Body height Body mass index (BMI) Body weight Provider Name and Address Organization Details Last Updated DateTime 02/06/2025 167.64 cm 28.2 kg/m2 32237.66 g Kerri Campbell MA - [facility] 02/06/2025 09:31:26 Social History None recorded. Functional Status None recorded. Mental Status None recorded. Family History Nothing Reported. Medical History Condition Response Allergies/Hayfever N Coronary Artery Disease N Anxiety/Depression N Breathing or lung disorders N Emphysema N Nerve Disorders N Thyroid Problems N COPD Y Pacemaker N Anemia N Kidney/Bladder Problems N Vascular Disease N Heart Trouble N Heart Attack ([place]) N Gastrointestinal Disease N Cholesterol N Diabetes N Autoimmune disease N Bleeding Disorder N Orthotics N Arthritis N Seizures/Epilepsy N Blood Clot N AIDS/HIV N Congestive Heart Failure (CHF) N Acid Reflux (GERD) N Cancer N Stroke N Asthma N Circulation Problems N Peripheral Vascular Disease N Sleep Apnea N Hepatitis N Heart Disease N Rheumatoid Arthritis N Arrhythmia N Pulmonary Embolism N Headaches N Fibromyalgia N Hypertension N Osteoporosis N Past Encounters Encounter ID Performer Location Encounter Start Date Encounter Closed Date Diagnosis/Indication Diagnosis SNOMED-CT Code Diagnosis ICD10 Code Diagnosis Note [id number] JEN Engel [address] [place] [address] 02/06/2025 09:23:43 02/06/2025 09:48:10 History of operative procedure on shoulder 550602391 Z96.612 Health Concerns Section Related Observation LastModified by Organization Detai ls LastModified Time None Recorded Concern Status LastModified by Organization Details LastModified Time None Recorded Payers Encounter Date Sequence Insurance Name Policy Number Policy Sy Covered Member ID Sy Member ID Guarantor Name 02/06/2025 2 [facility] - PLAN 1 (MEDICARE SUPPLEMENT) [id number] Devonte Vargas [facility] [id number] Devonte Vargas [place] 02/06/2025 1 [place]: [employer] Devonte Vargas [employer] [id number] Devonte Nadiya [facility] Notes Date Note Type Note Provider Name and Address Organization Details Recorded Time 02/06/2025 text/html I am seeing the patient today under the supervision of Dr. Macario who was available but who did not see the patient.Devonte returns now 5 months status post left anatomic total shoulder arthroplasty and doing well. He did have a slight setback postoperatively when he fell resulting in a periprosthetic fracture. This was followed with radiographs serially and showed complete healing of this injury. He reports today he is discontinued formal therapy and has excellent function and use the shoulder without limitations. He is very pleased with surgery.Past family, medical, social history and review of systems has been reviewed, updated and is located in the patient? s chart.Examination: Comfortable arc of motion today, slightly limited in forward flexion 170? ? ? with external rotation 60? ? ?, remaining arc is full. 2+ pulses and excellent rotator cuff and deltoid mechanics.Impression: 5 months status post left anatomic total shoulder arthroplasty doing wellPlan: Reviewed and discussed continued home exercise program. Slow transition to normal activities per comfort. He is to follow up with us as needed or if any changes arise. Leighton Dao PA-C [address], [place], [address], [facility] 02/06/2025 09:48:08
--- OUTSIDE RECORDS SUMMARY | 2025-02-07 06:52 | XMS_ITS | Data Portability ---
Author Organization LEDA Pieter Keller [facility], [facility] Address [address] [place] [address] Care Team Providers Care Librarian Assistant Name Role Phone BRODY CABRERA Primary Care Provider Assessment Encounter Date Assessment Date Assessment LastModified by Organization Details LastModified Time 10/18/2024 10/18/2024 Procedure/Date:l eft anatomic total shoulder 08/30/2024 History: Bipin suffered a fall on 09/18/2024, diagnosed with a proximal humeral fracture around his cage screw. Has been in a sling. Exam: Wound benigncommon neurovascular intact Radiographs: multiple views, minimally displaced fracture left proximal humerus which probably communicates with the tip of the cage screw Clinical Status: left proximal humeral fracture around cage screw Work Status/Plan:not applicable Physical Therapy Status: hold on therapy, restart in about 10 days Medication Prescriptions: [none given] Plan/Follow up:4 weeks as he will be traveling to [facility] for 2 weeks [facility] speech recognition doffer software was used to create portions of this document. An attempt at proofreading has been made to minimize errors. Please call for corrections. [email or web address] Not available 10/18/2024 15:06:28 Plan of Treatment Reminders Order Date Submit Date Provider Last Modified By Organization Details Last Modified Time Details Appointments None recorded. Lab None recorded. Referral None recorded. Procedures None recorded. Surgeries None recorded. Imaging XR, shoulder, 2 or more view - 4v L shldr. room 218 2024 025 [facility], [address], [address], [place], [address], 02/26/202 5 14:24:08 XR, shoulder, 2 or more view - 4v L shldr. room 222 2024 025 [facility], [address], [address], [place], [address], 5 14:39:38 XR, shoulder, 2 or more view - 4v L shldr. anatomic TSA JR Sx: 08/30/24. room 1 2023 024 reba de1 [facility] Office, [address], [address], [place], [address], 4 15:49:20 Medication Orders oxycodone 5 mg tablet 2023 024 [facility] [place], [address] [place], [address], 4 17:20:26 Patient TargetsNo targets recorded. Patient InstructionsNo instructions recorded. Reason for Referral None Reported. Results Created Date Observation Date Name Description Value Unit Range Abnormal Flag Note LastModifiedBy Organization Detail LastModifiedTime 09/06/2009/06/2024 XR, shoul jerome, 2 or more view [email or web address] ?Encry pted=s hAaTro YD8dLq bEUv6g %2BXZw aYqtaq 0bqfl% 2Fg9IQ a4ajBk vP9nXo QUaueC m3YtLR FvZlgJ JJ8mAn HZtai3 5g0338 AC0Kqa X6FWKK hKiQtr MwF INTERFACE [facility] [address], [place], [address], 09/06/2024 11:22:30 09/06/20 24 09/06/2024 XR, shoul jerome, 2 or more view [email or web address] ?Encry pted=s hAaTro YD8dLq bEUv6g %2BXZw aYqtaq 0bqfl% 2Fg9IQ a4ajBk vP9nXo QUaueC m3YtLR FvZl34 [address]tai[address] 5k8773 AC0Kqa X6FWKK hKiQtr MwF INTERFACE [facility] [address], [place], [address], 09/06/2024 11:22:32 09/20/20 24 09/20/2024 XR, shoul jerome, 2 or more view [email or web address] ?Encry pted=s hAaTro YD8dLq bEUv6g %2BXZw aYqtaq 0bqfl% 2Fg9IQ a4ajBk vP9nXo QUaueC m3YtLR FvZl [facility] HZtai3 8g4471 AC0Kqa XWHVaq jKiQtr MwF INTERFACE [facility] [address], [place], [address], 09/20/2024 14:19:17 09/20/20 24 09/20/2024 XR, shoul jerome, 2 or more view [email or web address] ?Encry pted=s hAaTro YD8dLq bEUv6g %2BXZw aYqtaq 0bqfl% 2Fg9IQ a4ajBk vP9nXo QUaueC m3YtLR [address]tai[address] 2w3965 AC0Kqa XWHVaq jKiQtr MwF INTERFACE [facility] [address], [place], [address], 09/20/2024 14:19:19 09/20/20 24 09/19/2024 XR, humer us, 2 or more view No observ ation record ed. BARCODE Not Available 2023 15:20:59 09/20/20 24 09/19/2024 XR, elbow , 3 or more view No observ ation record ed. BARCODE Not Available 2023 15:20:59 09/20/20 24 09/19/2024 XR, shoul jerome, 2 or more view No observ ation record ed. BARCODE Not Available 2023 15:20:59 11/12/19 25 11/12/2024 XR, shoul jerome, 2 or more view [email or web address] ?Encry pted=s hAaTro YD8dLq bEUv6g %2BXZw aYqtaq 0bqfl% 2Fg9IQ a4ajBk vP9nXo QUaueC m3YtLR FvZlJ JJ8Sheldon HZtai3 6h3461 AC0Kqb H2FVqS kKiQtr MwF INTERFACE [facility] [address], [address], 11/12/2024 14:39:38 11/12/19 25 11/12/2024 XR, shoul jerome, 2 or more view [email or web address] ?Encry pted=s hAaTro YD8dLq bEUv6g %2BXZw aYqtaq 0bqfl% 2Fg9IQ a4ajBk vP9nXo QUaueC m3YtLR FvZl JJ8mAn HZtai3 3y6424 AC0Kqb H2FVqS kKiQtr MwF INTERFACE [facility] [address] [address], [place], [address], 11/12/2024 14:39:40 12/12/19 25 12/12/2024 XR, shoul jerome, 2 or more view [email or web address] ?Encry pted=s hAaTro YD8dLq bEUv6g %2BXZw aYqtaq 0bqfl% 2Fg9IQ a4ajBk vP9nXo QUaueC m3YtLR FvZlgJ JJ8mAn HZtai3 4n3481 AC0Kqb XmAVqC hKiQtr MwF INTERFACE [facility] [address], [place], [address], 12/12/2024 14:24:08 12/12/19 25 12/12/2024 connie MCKEON, 2 or more view [email or web address] ?Encry pted=s hAaTro YD8dLq bEUv6g %2BXZw aYqtaq 0bqfl% 2Fg9IQ a4ajBk vP9nXo QUaueC m3YtLR FvZlgJ JJ8mAn HZtai3 0j3604 AC0Kqb XmAVqC hKiQtr MwF INTERFACE [facility] [address], [place], [address], 12/12/2024 14:24:11 Result Notes None recorded. Problems Name Problem SNOMED Code Status Onset Date Resolution Date Notes Provider Name and Address Organization Details Recorded Time No complaint s 724398221 Active Status: 'I'; Not Available [facility] 4 09:21:45 Osteoarth ritis of first carpometa carpal joint of right hand 572197923801 101 Active 2023 Abraham Alvarado PA-C [address], [place], [address] , [facility] 4 12:31:48 Impingeme nt syndrome of left shoulder region 489301577555 104 Active 2015 Problem Code: M75.42; Problem Code Type: ICD-10; Status: 'A'; Not Available [facility] 4 11:58:25 Problem Notes None recorded. Procedures Surgical History Date Name Laterality Status Provider Name and Address Organization Details Recorded Time 4 Cast_Thumb Spica_11+ completed DOMENICA WINN [facility] 05/30/2024 13:22:20 4 Cast Removal completed DOMENICA WINN [facility] 05/30/2024 13:21:27 4 Sports Shoulder completed Kristie Tejada PA-C [address], [place], [address], [place] - [facility] 03/26/2024 14:43:31 Imaging Results Imaging Date Name Status LastModified by Organiz ation Details LastModified Time 09/06/2024 XR, shoulder, 2 or more view completed INTERFACE [facility] [address], [place], [address], 09/06/2024 11:22:30 09/06/2024 XR, shoulder, 2 or more view completed INTERFACE [facility] [address], [place], [address], 09/06/2024 11:22:32 09/20/2024 XR, shoulder, 2 or more view completed INTERFACE [facility] [address], [place], [address], 09/20/2024 14:19:17 09/20/2024 XR, shoulder, 2 or more view completed INTERFACE [facility] [address], [place], [address], 09/20/2024 14:19:19 09/19/2024 XR, humerus, 2 or more view completed BARCODE Information not available 09/20/2024 15:20:59 09/19/2024 XR, elbow, 3 or more view completed BARCODE Information not available 09/20/2024 15:20:59 09/19/2024 XR, shoulder, 2 or more view completed BARCODE Information not available 09/20/2024 15:20:59 11/12/2024 XR, shoulder, 2 or more view completed INTERFACE [facility] [address], [place], [address], 11/12/2024 14:39:38 11/12/2024 XR, shoulder, 2 or more view completed INTERFACE [facility] [address], [place], [address], 11/12/2024 14:39:40 12/12/2024 XR, shoulder, 2 or more view completed INTERFACE [facility] [address], [place], [address], 12/12/2024 14:24:08 12/12/2024 XR, shoulder, 2 or more view completed INTERFACE [facility] [address], [place], [address], 12/12/2024 14:24:11 Procedure Notes None recorded. Medical Equipment None Reported. Allergies Allergen ID Allergen Name Allergen Category Reaction Reaction Severity Criticality Documentation Date Start Date Code Code System Note Provider Name and Address Organization Details Recorded Time 13062 morphine sulfate medicatio n Not available Not available Not available 12/19/20232020 35509 RxNorm Not Available [facility] 4 12:08:38 38280 codeine medicatio n Not available Not available Not available 12/19/20232022 2670 RxNorm Not Available [facility] 4 12:08:38 Medications Name Sig Start Date Stop [...] t Available Vitals Date Recorded Body height Provider Name an d Address Organization Details Last Updated DateTime 09/20/2024 167.64 cm Kerri Campbell [place] - [facility] 09/20/2024 13:54:33 Date Recorded Body height Body mass index (BMI) Body weight Provider Name and Address Organization Details Last Updated DateTime 10/18/2024 167.64 cm 28.2 kg/m2 02258.66 g BELEN HARPERDEN [facility] 10/18/2024 14:07:52 Date Recorded Body height Body mass index (BMI) Body weight Provider Name and Address Organization Details Last Updated DateTime 11/12/2024 167.64 cm 28.2 kg/m2 90597.66 g Kerri Campbell [facility] 11/12/2024 14:17:06 Date Recorded Body height Body mass index (BMI) Body weight Provider Name and Address Organization Details Last Updated DateTime 12/12/2024 167.64 cm 28.2 kg/m2 42043.66 g Kerri Campbell [facility] 12/12/2024 14:15:44 Date Recorded Body height Body mass index (BMI) Body weight Provider Name and Address Organization Details Last Updated DateTime 02/06/2025 167.64 cm 28.2 kg/m2 25890.66 g Kerri Campbell [facility] 02/06/2025 09:31:26 Social History None recorded. Functional Status None recorded. Mental Status None recorded. Family History Nothing Reported. Medical History Condition Response Coronary Artery Disease N Anxiety/Depression N Emphysema N COPD Y Pacemaker N Vascular Disease N Heart Trouble N Gastrointestinal Disease N Autoimmune disease N Orthotics N Arthritis N Blood Clot N Acid Reflux (GERD) N Cancer N Stroke N Circulation Problems N Rheumatoid Arthritis N Arrhythmia N Headaches N Fibromyalgia N Allergies/Hayfever N Breathing or lung disorders N Nerve Disorders N Thyroid Problems N Kidney/Bladder Problems N Anemia N Heart Attack ([place]) N Cholesterol N Diabetes N Bleeding Disorder N Seizures/Epilepsy N AIDS/HIV N Congestive Heart Failure (CHF) N Asthma N Peripheral Vascular Disease N Sleep Apnea N Hepatitis N Heart Disease N Pulmonary Embolism N Hypertension N Osteoporosis N Past Encounters Encounter ID Performer Location Encounter Start Date Encounter Closed Date Diagnosis/Indication Diagnosis SNOMED-CT Code Diagnosis ICD10 Code Diagnosis Note [id number] JEN Baer 2nd floor [address] [place] [address] 03/26/2024 13:41:05 04/18/2024 11:45:30 Pain of left shoulder joint 4386457320 8221199 M25.512 Osteoarthr itis of left glenohumeral joint 3431683371 280677 M19.012 Reviewed patient's imaging and exam findings in detail with him. Discussed that he has advanced left glenohumer al osteoarthr itis for which the only curative treatment would be total shoulder replacemen t. He seems to have good cuff quality on exam testing and no superior humeral head migration. Would recommend MRI for preoperati ve surgical planning purposes to evaluate rotator cuff quality in preparatio n for total shoulder replacemen t with Dr. Macario moving forward. He requests injection today for symptomati c relief. Understand s that he cannot have surgical interventi on within 3 months of cortisone injection. He is already scheduled for a hand surgery with Dr. Ulloa next month and therefore is happy to hold off on operative interventi on until cleared by Dr. Macario. All questions and concerns were addressed and answered. MRI will be ordered today and reviewed with Dr. Macario at his follow-up visit. [id number] MD Steve Khoury 2nd floor [address] [place] [address] 04/11/2024 10:06:23 05/02/2024 10:38:54 Pain of right shoulder joint 0418210837 9118613 M25.511 Osteoarthr itis of left glenohumeral joint 9599639210 744846 M19.775 [id number] MD Steve Kidd 1st [facility] [address] [place] [address] 05/22/2024 09:25:05 05/22/2024 09:56:31 Postoperative care 595661899 Z48.89 [id number] JEN Johns [address] [place] [address] 05/23/2024 15:01:20 06/20/2024 09:22:47 Osteoarthritis of first carpometacarpal joint of right hand 5904082663 31565 M18.11 [id number] JEN Johns [address] [place] [address] 05/30/2024 12:56:43 05/30/2024 13:23:39 Postoperative care 730507030 Z48.89 [id number] JEN Johns [address] [place] [address] 06/20/2024 13:12:18 07/11/2024 15:34:04 Osteoarthritis of first carpometacarpal joint of right hand 6841725990 61640 M18.11 [id number] Willie Ulloa MD [facility] [address] [place] [address] 08/01/2024 12:47:19 08/20/2024 07:27:38 Primary arthrosis of first carpometacarpal joints, bilateral 446605507 M18.0 [id number] Mick Macario MD [facility] 2[address] [place] [address] 08/02/2024 10:01:23 08/24/2024 09:16:14 Chronic pain of left upper limb 7995289590 1324700 M25.512 G89.29 [id number] Mick Macario MD [facility] 2nd floor [address] [place] [address] 09/06/2024 10:42:29 10/01/2024 11:30:18 Pain of left shoulder joint 4083712905 3737664 M25.428 [id number] JEN Engel [address] [facility] [place] [address] 09/20/2024 13:44:06 10/08/2024 15:41:31 Postoperative visit 475699836 Z48.89 Closed fra cture of upper end of humerus 43726307 S42.295D [id number] Mick Macario MD [facility] [address]nd floor [address] [place] [address] 10/18/2024 13:48:29 10/31/2024 11:50:43 Arthropathy of left shoulder 2350498498 5318147 M19.012 Closed fra cture of upper end of humerus 78380628 S42.202D [id number] JEN Engel 2nd floor [address] [place] [address] 11/12/2024 14:06:35 11/21/2024 11:46:56 Closed fracture of upper end of humerus 42357187 S42D [id number] JEN Engel 2nd floor [address] [place] [address] 12/12/2024 13:44:43 12/25/2024 11:58:42 Closed fracture of left shoulder 0315065243 1231697 S42.92XD [id number] JEN Engel 2nd floor [address] [place] [address] 02/06/2025 09:23:43 02/06/2025 09:48:10 History of operative procedure on shoulder 151831802 Z96.612 Health Concerns Section Related Observation LastModified by Organization Detai ls LastModified Time None Recorded Concern Status LastModified by Organization Details LastModified Time None Recorded Advance Directives Directive None Recorded Payers Encounter Date Sequence Insurance Name Policy Number Policy Sy Covered Member ID Sy Member ID Guarantor Name 09/20/2024 2 [facility] 1 (MEDICARE SUPPLEMENT) [id number] [facility] [id number] Devonte Vargas [facility] 09/20/2024 1 [place] [employer] Devonte Cortez [id number] Devonte Vargas [facility] 10/18/2024 2 [facility] 1 (MEDICARE SUPPLEMENT) [id number] 01 [facility] [id number] Devonte Vargas [facility] 10/18/2024 1 [place] [employer] Devonte Cortez [id number] Devonte Vargas [facility] 11/12/2024 2 [facility] - [facility] 1 (MEDICARE SUPPLEMENT) [id number] 01 Devonte Cortez [id number] Devonte Vargas [facility] 11/12/2024 1 [place] [employer] Devonte Cortez [id number] Devonte Vargas [facility] 12/12/2024 2 [facility] 1 (MEDICARE SUPPLEMENT) [id number] 01 Devonte Cortez [id number] Devonte Vargas [facility] 12/12/2024 1 [place] [employer] Devonte Cortez [id number] Devonte Cortez 02/06/2025 2 [facility] - [facility] 1 (MEDICARE SUPPLEMENT) [id number] 01 Devonte Cortez [id number] Devonte Cortez 02/06/2025 1 [place] [facility] Devonte Cortez [id number] Devonte Cortez Notes Date Note Type Note Provider Name and Address Organization Details Recorded Time 09/20/2024 text/html I am seeing the patient today under the supervision of Dr. Ragland who was available but who did not see the patient.Devonte presents. Examination of his left shoulder. Status post anatomic total shoulder arthroplasty on 08/30/[address] Macario. He unfortunately slipped and fell just yesterday. He was seen at a hospital where radiographs obtained and demonstrated a nondisplaced fracture of the surgical neck of the left humerus, just inferior to the humeral head component cage ? screw. He was referred for orthopedic care. 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 Has more amount of pain. Is not using the arm.Past family, medical, social history and review of systems has been reviewed, updated and signed by me and is located in the patient? s chart.Examination: Well-healed incision. No significant effusion. Range of motion was limited secondary to pain and known injury. Deltoid was intact. 2+ pulses distallyX-rays: 4 views left shoulder obtained today, the office and reviewed. Abdomen it has confirms nondisplaced fracture of the surgical neck of the left proximal humerus. Cage screw appears to be well-maintained with no displacement of componentsImpression: Left periprosthetic fracture left proximal humerusPlan: Reviewed and discussed at length, x-ray findings and treatment options. At this time because of the fracture. It looks to be reasonably well aligned and maintained with no displacement of any components. Thus, he will being sling full-time for 4 weeks coming out only to shower. He is to follow up with Dr. Macario with new radiographs at that time and reevaluation. Leighton Dao PA-C [address] [facility] [address], [place], [address], [facility] 09/20/2024 14:32:39 11/12/2024 text/html I am seeing the patient today under the supervision of Dr. Mendez who was available but who did not see the patient.Devonte returns in follow-up of the shoulder. Postoperatively, he is periprosthetic fracture of the proximal humerus. He has done well and has conservatively.Past family, medical, social history and review of systems has been reviewed, updated and signed by me and is located in the patient? s chart.Examination: Well-healed incision. No significant effusion. Range of motion passively was uncomfortable to horizontal. Active assisted range of motion also multiple horizontal levels. Deltoid was intact. 2+ pulses distallyX-rays: 4 views left shoulder obtained today, the office and reviewed. Abdomen it has confirms nondisplaced fracture of the surgical neck of the left proximal humerus. Cage screw appears to be well-maintained with no displacement of components. There has been no subsidence or change in position. Possible some early callus seen laterally.Impression: Left periprosthetic fracture left proximal humerusPlan: Reviewed and discussed at length, x-ray findings and treatment options. He will continue conservative care and sling use follow-up Leighton Dao PA-C [address] [facility] [address], [place], [address], [facility] 11/12/2024 15:52:10 12/12/2024 text/html I am seeing the patient today under the supervision of Dr. Henderson who was available but who did not see the patient.Devonte returns in follow-up of the shoulder. Postoperatively, he is periprosthetic fracture of the proximal humerus. He has done well and has conservatively. Has no pain today he reports.Past family, medical, social history and review of systems has been reviewed, updated and signed by me and is located in the patient? s chart.Examination: Well-healed incision. No significant effusion. Range of motion passively was comfortable above horizontal. Active assisted range of motion also well above horizontal levels. Deltoid was intact. 2+ pulses distallyX-rays: 4 views left shoulder obtained today, the office and reviewed. excellent healing demonstrated through the proximal humerus below the cage screw. No evidence of fracture line is previous. Good callus the lateral cortex.Impression: healed, Left periprosthetic fracture left proximal humerusPlan: Reviewed and discussed at length, x-ray findings and treatment options. He will continue conservative care with physical therapy progressing in range of motion and introducing strengthening. Recheck with us in 8 weeks. Leighton Dao PA-C [address], [place], [address], [facility] 12/12/2024 15:04:41 02/06/2025 text/html I am seeing the patient [...] any changes arise. Leighton Dao PA-C [address], [place], [address], [facility] 02/06/2025 09:48:08
--- OUTSIDE RECORDS SUMMARY | 2025-02-07 06:53 | XMS_ITS | Data Portability ---
Author Organization [place] - [facility] [address] Address [address] [place] [address] Care Team Providers Care Investor Relations Specialist Name Role Phone BRODY CABRERA Primary Care Provider [phone] Assessment No assessment recorded. Plan of Treatment Reminders Order Date Submit Date Provider Last Modified By Organization Details Last Modified Time Details Appointments None recorded. Lab None recorded. Referral None recorded. Procedures None recorded. Surgeries None recorded. Imaging None recorded. Medication Orders clotrimazol e 10 mg clive 2023 024 [id number] [facility][id number], [address] [place], [address], 4 16:50:23 Patient TargetsNo targets recorded. Patient InstructionsNo instructions recorded. Reason for Referral None Reported. Problems Name Problem SNOMED Code Status Onset Date Resolution Date Notes Provider Name and Address Organization Details Recorded Time Hypercholester olemia 26065020 Active Jose Alfredo Curto null, [place] - [facility] 4 16:34:34 Benign prostatic hyperplasia 232192573 Active Jose Alfredo Curto null, [place] - [facility] 4 16:34:48 Compression injury of nerve 43824393 Active Jose Alfredo Curto null, [place] - [facility] 4 16:35:07 Anxiety 44988935 Active Jose Alfredo Curto null, [place] - [facility] 4 16:35:19 Candidiasis of mouth 50518451 Active 2023 Lenny Matthews, DO [address], [place], [address] , [place] - [facility] 4 16:36:54 [...] Name and Address Organization Details Recorded Time 945544 codeine medicatio n vomiting Not available Not available 05/06/2024 2670 RxNorm Jose Alfredo Curto null, [place] - [facility] 4 16:31:57 257747 morphine medicatio n headache Not available Not [...] /min 98.5 [degF] 167.64 cm 27.8 kg/m2 50512.8 9 g 118 mm[Hg] 68 mm[Hg] Jose [...] Use Any Illicit Or Recreational Drugs? Yes [place] Information not available 05/06/2024 Have You Recently [...] SNOMED-CT Code Diagnosis ICD10 Code Diagnosis Note [id number] [address] [place] [address] 04/20/2016 16:03:18 04/20/2016 16:43:58 [id number] [address] [address] 09/05/2020 18:41:48 09/05/2020 19:40:03 [id number] [address] [address] 09/27/2015 09:54:13 09/27/2015 10:55:57 [id number] [place] [address] [address] 05/06/2024 16:17:46 05/06/2024 16:40:02 Candidiasis of mouth 69836080 B37.0 See pcp in 3-4 days. Go [...] Policy Number Policy Sy Covered Member ID Ys Member ID Guarantor Name 09/27/2015 1 [facility] [id number] Le[facility] [id number] Devonte Sargentalma 04/20/2016 1 [facility] [id number] [facility] [id number] Devonte [facility] 09/05/2020 1 [facility] ER [id number] [facility] [id number] Devonte [facility] 05/06/2024 1 MEDICARE B-[place]: [employer] Devonte Sam [facility] [id number] [facility] Notes Date Note Type Note Provider Name and Address Organization Details Recorded Time 05/06/2024 text/html Pt c/o redness swelling and burning pain of tongue x few weeks ?thrushNO FEVERSNO DIABETESHAS AN INHALED STEROID FOR COPD. BRUSHES AND RINSES MOUTH DIRECTED FOR INHALED STEROID Lenny Matthews [place], [address], [place] [facility] 05/06/2024 16:53:06
--- OUTSIDE RECORDS SUMMARY | 2025-02-07 06:53 | XMS_ITS ---
Author Organization [facility] Address [address] [place] [address] Care Team Providers Care Balloon Maker Name Role Phone Rolly Guerrero MD Primary Care Provider Bertin Schaffer Unavailable [phone] [facility], Meghan Unavailable Unavailable Allergies Allergen (clinical drug [...] [facility] [address] [place] [address] 01/02/2025 Bertin Balbuena History of hepatitis C [...] 01/02/2025 CBC w DIFF 01/02/2025 ALPHA-FETOPROTEIN,TUMOR MARKER 5 HEPATITIS C VIRAL LOAD 01/02/2025 HCV LIVER FIBROSIS, FIBRO TEST 5 Prothrombin Time INR 01/02/2025 US abdomen comp w elastography 5 Next Appt Details Follow Up: prn, Reason: Progress Notes * JAYDEN BENITEZOB:1959 (64 yo M)Acc No.[id number]:01/02/2025 Progress Notes Patient:?SE BENITEZ Provider:?Bertin Balbuena MD :1960???Age:64 Y???Sex:Male Sergio e:01/02/2025 Address:[address] [place] [address] Pcp:Rolly Guerrero MD Subjective: * Chief Complaints: [...] last saw him 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 ???Nonsmoker since 2009; No alchohol use [...] elastography* sched for 02/07/25 at 8:30 am [facility] Ultrasoound Dept 2nd floorfasting 8 hrs prior * 3.?History of adenomatous polyp of colon?Procedure: COLONOSCOPY* with MACsched for 02/01/25 at 2:40 pmmiralax 4.?Encounter for screening for malignant neoplasm of colon?Procedure: COLONOSCOPY* with MACsched for 02/01/25 at 2:40 pmmiralax * Procedure Codes:?08029 DIAGN OSTIC [id number] COLORECTAL CA SCREEN DOC [id number] TOBACCO NON-HOKML6822 BP SCR NOT PRFRM REC REASON [id number] RCMND FLW-UP 10 YRS DOCD * Preventive [...] Balbuena MD Date:? 025 Generated for Pradeep vela/Patrick/eTransmitting on:?02/07/2025 06:52 AM EDT History and Physical Notes * Examination [...]
--- OUTSIDE RECORDS SUMMARY | 2025-02-07 06:53 | XMS_ITS | Patient Health Record ---
Author Organization [facility] Address [address] [place] [address] Care Team Providers Care Chiller Operator Name Role Phone Rolly Guerrero MD Primary Care Provider Bertin Schaffer Unavailable [phone] Meghan Walker CNP Unavailable Unavailable Allergies Allergen [...] Problem Status W/U Status Risk Notes Problem 585633943 Encounter for screening for malignant neoplasm of colon (Z12.11) Active confirmed Problem History of adenomatous polyp of colon (291376402) History of adenomatous polyp of colon (Z86.010) Active confirmed Problem 380025742 Chronic hepatitis C without hepatic coma (B18.2) Active confirmed Problem 805119721 Abdominal pain, right upper quadrant (R10.11) Active confirmed Problem 08700540042904 History of hepatitis C (Z86.19) Active confirmed Problem 93459072 Liver fibrosis (K74.0) Active confirmed Problem 49963058 Liver fibrosis (K74.00) Active confirmed Vital Signs Temperature 97.5 degrees Fahrenheit 01/02/2025 Blood pressure diastolic 01 mm Hg 01/02/2025 Height 66 in 01/02/2025 Blood pressure systolic 001 mm Hg 01/02/2025 Weight 186 lbs 01/02/2025 BMI 30.02 kg/m2 01/02/2025 Procedures Procedure Date Ordered Date Performed Result Body Sit e COLONOSCOPY 01/02/2025 N/A Encounters Encounter Location Date Provider Diagnosis [facility] Outpatient [address] [place], [place] [phone] 02/01/2025 Bertin Balbuena [facility] [address] [place] [address] 01/02/2025 Bertin Balbuena History of hepatitis C [...] Name Order Date COLONOSCOPY 01/02/2025 LIVER PROFILE 12/24/2021 LIVER PROFILE 01/02/2025 LIVER PROFILE 12/21/2023 CBC w DIFF 12/21/2023 CBC w DIFF 12/24/2021 CBC w DIFF 01/02/2025 PROTHROMBIN TIME (PT, INR) 12/24/2021 ALPHA-FETOPROTEIN,TUMOR MARKER 5 ALPHA-FETOPROTEIN,TUMOR MARKER 4 ALPHA-FETOPROTEIN,TUMOR MARKER 4 ALPHA-FETOPROTEIN,TUMOR MARKER 2 HEPATITIS C VIRAL LOAD 12/24/2021 HEPATITIS C VIRAL LOAD 01/02/2025 HEPATITIS C VIRAL LOAD 12/21/2023 HCV LIVER FIBROSIS, FIBRO TEST 5 US ABDOMEN COMP WITH ELASTOGRAPHY 2021 Prothrombin Time INR 01/02/2025 Prothrombin Time INR 12/21/2023 Liver Fibrosis Pnl 12/21/2023 Liver Fibrosis Pnl 12/24/2021 US abdomen comp w elastography 4 US abdomen comp w elastography 5 Future Test Test Name Order Date COLONOSCOPY 10/06/2011 COLONOSCOPY 12/11/2019 Insurance Providers Payer Name Payer Address Payer Phone Subscriber Number Group Number Insured Name Patient Relationship to Insured Coverage Start Date Coverage End Date MEDICARE OF [place] [address] [facility] [phone] [id number] VIGNESH SCHULTE SE Self - patient is the insured [facility] [address] [place] [phone] [id number] SE ZAMORA Self - patient is the insured Medical (General) History Medical History History ICD Code Cardiac ablation at [facility] Negative colonoscopy in September 2011 an d in November 2009 Previous chronic Hepatitis C treated successfully from 1997 through 1998, with negative followup Hep C RNA levels. 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 Neg. hepatitis C viral load in 2021 Hyperlipidemia Denies CO,DM,CVA,Lung disease,renal dise ase BPH Arthritis in hands [...]
--- OUTSIDE RECORDS SUMMARY | 2025-02-07 06:53 | XMS_ITS ---
Author Organization [facility] Address [address] [place] [address] Care Team Providers Care Statistical Programmer Name Role Phone Yolanda RALPH, Rolly Primary Care Provider Bertin Schaffer [phone] [facility][note 3], Meghan Unavailable Unavailable REASON FOR VISIT screening,hx polyps Encounters Encounter Location Date Provider Diagnosis [facility] Outpatient [address] [place] [phone] 02/01/2025 Bertin Balbuena Plan Of Treatment No Information Progress Notes * JAYDEN BENITEZOB:1959 (64 yo M)Acc No.[id number]:02/01/2025 COLON WITH MAC Patient:?SE BENITEZ Provider:?Bertin Balbuena MD :1960???Age:64 Y???Sex:Male Sergio e:02/01/2025 Address:[address] [place], [place] [id number] Pcp:Rolly Guerrero MD Subjective: * Chief Complaints: * ???1. Screening,hx polyps. * Medical History:? Objective: * Vitals:? Assessment: Plan: * Treatment: * * The named appointment provid er may or may not be the originator of this progress note, and it is not deemed complete until electronically signed by the appointment provider. Sign off status: Pending * Provider:?Bertin Balbuena MD Date:? 025 Generated for Iami ng/Fapreciousg/eTransmitting on:?02/07/2025 06:52 AM EDT
--- OUTSIDE RECORDS SUMMARY | 2025-02-07 06:53 | XMS_ITS ---
Author Organization [facility] Address [address] [place] [address] Care Team Providers Care Dairy Nutrition Specialist Name Role Phone Yolanda RALPH, Rolly Primary Care Provider Bertin Schaffer [phone] [facility][note 3], Meghan Unavailable Unavailable REASON FOR VISIT hepatitis Encounters Encounter Location Date Provider Diagnosis [facility] [address] [place] [address] 12/19/2024 Bertin Balbuena Plan Of Treatment No Information Progress Notes * JAYDEN BENITEZOB:1959 (64 yo M)Acc No.[id number]:12/19/2024 Progress Notes Patient:?SE BENITEZ Provider:?Bertin Balbuena MD :1960???Age:64 Y???Sex:Male Sergio e:12/19/2024 Address:[address] [place], [place] [phone] Pcp:Rolly Guerrero MD Subjective: * Chief Complaints: * ???1. Hepatitis. * Medical History:? Objective: * Vitals:? Assessment: Plan: * Treatment: * * The named appointment provid er may or may not be the originator of this progress note, and it is not deemed complete until electronically signed by the appointment provider. Sign off status: Pending * Provider:?Bertin Balbuena MD Date:? 025 Generated for Printi ng/Faxing/eTransmitting on:?02/07/2025 06:52 AM EDT
[2025-02-07 07:10] LABS: MANUAL DIFF FLAG NO
[2025-02-07 07:45] LABS: Basophils Absolute Auto 0.1 X10*3/uL (0.0-0.2); Basophils Percent Auto 1.6 % (0-2); Eosinophils Absolute Auto 0.2 X10*3/uL (0.0-0.4); Eosinophils Percent Auto 3.3 % (0-4); Hematocrit 39.8 % (42.0-52.0); Hemoglobin 13.7 g/dl (14.0-18.0); Imm Gran Abs Auto 0.03 X10*3/uL (0.00-0.03); Imm Gran Pct Auto 0.5 % (0.0-0.4); Lymphocytes Percent Auto 31.7 % (20-40); Mean Corpuscular HGB Conc 34.4 g/dl (31.0-36.0); Mean Corpuscular Hemoglobin 33.7 pg (27.0-33.0); Mean Corpuscular Volume 97.8 fL (80.0-98.0); Mean Platelet Volume 9.2 fL (9.4-12.4); Monocytes Absolute Auto 0.7 X10*3/uL (0.1-1.2); Monocytes Percent Auto 10.7 % (2-11); Neutrophils Absolute Auto 3.3 x10*3/uL (2.0-8.3); Neutrophils Percent Auto 52.2 % (45-73); Platelet Count 279 X10*3/uL (160-400); Red Blood Count 4.07 X10*6/uL (4.60-5.80); Red Cell Distribution Width 13.3 % (11.0-16.0); White Blood Count 6.3 X10*3/uL (4.8-10.8)
[2025-02-07 07:52] LABS: INTERNATIONAL NORM RATIO 0.9 (0.9-1.1); Prothrombin Time 9.9 SEC (10.9-12.4)
[2025-02-07 08:17] LABS: Alanine Aminotransferase 18 U/L (0-40); Albumin Level 4.2 g/dL (3.5-5.0); Alkaline Phosphatase 73 U/L (39-117); Aspartate Amino Transferase 29 U/L (5-37); Bilirubin Direct 0.1 mg/dL (0.0-0.5); Bilirubin Total 0.3 mg/dL (0.0-1.0); Total Protein 6.8 g/dL (6.5-8.0)
[2025-02-08 10:23] LABS: Alpha Fetoprotein 1.7 ng/mL (<6.1)
[2025-02-11 15:09] LABS: HCV Log PCR <1.18 NOT DETECTED Log IU/mL (NOT DETECTED); HepC Viral Load <15 NOT DETECTED IU/mL (NOT DETECTED)
[2025-02-13 16:14] LABS: FIB-ALT 14 U/L (9-46); FIB-Alpha-2-Macroglobulin 231 mg/dL (106-279); FIB-Apolipoprotein A1 149 mg/dL (94-176); FIB-GGT 16 U/L (3-70); FIB-Haptoglobin 181 mg/dL (43-212); FIB-Total Bilirubin 0.3 mg/dL (0.2-1.2); Liver Fibrosis Stage F0; Nec Inflam Act Grade A0; Nec Inflam Act Score 0.04; Reference ID 5461819
== END 2025-02-07 06:51 | disposition home or self-care (01) ==
LOC: HO.US 06:50
PROVIDERS: PCP Internal Medicine; Visit Provider Internal Medicine
DX: K74.00 Hepatic fibrosis, unspecified (principal); Z86.19 Personal history of other infectious and parasitic diseases
CPT/HCPCS: 36415; 76700; 76981; 80076; 81596; 82105; 85025; 85610; 87522

== ENCOUNTER → 2025-02-07 07:11 | Outpatient (BNV) | payer MEDICARE, OTHER, SELFPAY | PROVIDERS: PCP Internal Medicine; Visit Provider Radiology Diagnostic Radiology | DX: K76.0 Fatty (change of) liver, not elsewhere classified (principal) | CPT/HCPCS: 76700; 76981 ==